=== PATIENT | female | born 1975 | race Caucasian/White ===

== ENCOUNTER → 2017-01-28 | Outpatient (CLI) | payer BC ==
[~2017-01-28] MED LIST: AMOX875T PO; DPPRI400 INJ; LEVO-366 PO
== END | disposition home or self-care (01) ==
LOC: C.PAPS 16:54
PROVIDERS: ATTEND Obstetrics & Gynecology
DX: Z01.419 Encounter for gynecological examination (general) (routine) without abnormal findings (principal); R87.610 Atypical squamous cells of undetermined significance on cytologic smear of cervix (ASC-US); E28.2 Polycystic ovarian syndrome; R87.616 Satisfactory cervical smear but lacking transformation zone

== ENCOUNTER 2017-05-19 17:08 | Emergency (ER) | payer BC ==
[~2017-05-19 17:08] MED LIST changes: -AMOX875T PO
[2017-05-19 17:15] VITALS: TEMP 36.4; Ht 167.6 cm
[2017-05-19 18:00] LABS: URINE APPEARANCE CLEAR (CLEAR); URINE BILIRUBIN NEG (NEG); URINE COLOR YELLOW; URINE NITRITE NEG (NEG); URINE PH 5.5 (4.5-7.5); URINE SPECIFIC GRAVITY 1.012 (1.000-1.030); UROBILINOGEN NEG (NEG); ZZUR CULT IF INDIC CLEAN CATCH NO
[2017-05-19 18:02] LABS: MANUAL MICROSCOPIC REQUIRED? NO; REVIEW REQ? NO
[2017-05-19 18:19] LABS: BASO % 0.1 %; BASO ABS # 0.01 K/uL (0-0.2); COMPLETE YES; EOS % 1.4 %; HEMATOCRIT 44.2 % (37-47); IG% 0.1 %; LYMPH % 17.8 %; LYMPH ABS # 1.57 K/uL (1.2-3.4); MEAN CORPUSCULAR HEMOGLOBIN 23.8 pg (25-34); MEAN CORPUSCULAR HGB CONC 31.7 g/dl (32-36); MEAN PLATELET VOLUME 10.4 fL (7.4-10.4); MONO % 4.3 %; NEUT % 76.3 %; PLATELET COUNT 259 K/uL (130-400); RED BLOOD COUNT 5.89 M/uL (4.2-5.4); WHITE BLOOD COUNT 8.84 K/uL (4.8-10.8)
[2017-05-19 18:38] LABS: ALT/SGPT 26 U/L (12-78); AST/SGOT 15 U/L (15-37); BLOOD UREA NITROGEN 9 mg/dl (7-18); BUN/CREATININE RATIO 7.6 (10-20); CALCIUM 9.1 mg/dl (8.5-10.1); CARBON DIOXIDE 26 mmol/L (21-32); CHLORIDE 105 mmol/L (98-107); GLUCOSE 124 mg/dl (70-99); MAGNESIUM 2.3 mg/dl (1.8-2.4); POTASSIUM 3.5 mmol/L (3.5-5.1); SODIUM 139 mmol/L (136-145)
[2017-05-19 18:41] LABS: ALB/GLOB RATIO 0.9 (0.9-2); ALKALINE PHOSPHATASE 100 U/L (45-117)
--- NOTE | 2017-05-19 18:50 | DIAGNOSTIC IMAGING REPORT ---
CHEST AND ABDOMEN 2 VIEWS HISTORY: No solid bowel movement in 9 days. Abdominal distension COMPARISON: Chest 09/03/2016. FINDINGS: The lungs are clear. The cardiomediastinal silhouette is within normal limits. There is no pneumoperitoneum or pneumatosis. The bowel gas pattern is unremarkable. No evidence for bowel obstruction. No renal or ureteral calculi. No radiographic evidence for constipation. IMPRESSION: No acute cardiopulmonary process. No evidence for bowel obstruction. Electronically signed by: Maurilio Edgar M.D. 05/19/2017 6:49 PM Dictated Date/Time: 05/19/2017 6:47 PM
[2017-05-19] MEDS ORDERED: SODIUM CHLORIDE 0.9% 1000ML 1,000 ML IV STA (19:02)
[2017-05-19] MEDS ORDERED: OPTIRAY 320 IV PRN (19:15)
--- NOTE | 2017-05-19 19:38 | DIAGNOSTIC IMAGING REPORT ---
ABDOMEN AND PELVIS CT WITH IV CONTRAST CT DOSE: 2131.89 mGy.cm HISTORY: Constipation. Abd bloating, no bowel movement in 9 days. TECHNIQUE: Multiaxial CT images of the abdomen and pelvis were performed following the use of intravenous contrast. A dose lowering technique was utilized adhering to the principles of ALARA. COMPARISON STUDY: Chest and abdominal series 05/19/2017. FINDINGS: There are few scattered nodules seen within the lung bases. The largest within the left lower lobe on image 85 measures 5 mm. No pneumoperitoneum. No pneumatosis. Bilateral L5 spondylolysis. Tiny fat-containing umbilical hernia. A 5 mm hypodense lesion within the left hepatic lobe. This is too small to characterize but favors a cyst. Mild hepatic steatosis. The spleen, adrenal glands, and pancreas are unremarkable. There are a few small gallstones. Punctate stones within the lower pole of the right kidney. A 1.2 cm hypodense lesion within the left kidney. This likely represents a cyst. No ureteral stones or hydronephrosis. Normal bladder. No retroperitoneal lymphadenopathy. The uterus and ovaries are unremarkable. Normal appendix. No evidence for bowel obstruction. There appears to be minimal pericolonic fat stranding surrounding a diverticulum within the proximal to mid sigmoid colon best seen on images 71 through 73. This raises the possibility of a early acute diverticulitis. IMPRESSION: 1. There appears to be minimal pericolonic fat stranding at the proximal to mid sigmoid colon surrounding a diverticulum. Therefore, this raises the possibility of an early acute diverticulitis. 2. Right-sided nephrolithiasis. No hydronephrosis. 3. Cholelithiasis. 4. A few subcentimeter nodules at the lung bases with the largest measuring 5 mm. Please refer to the chart below for recommended follow-up. Please refer to below summary of Fleischner criteria recommendations for follow-up of incidental CT nodules (Chris Bolton, Guidelines for management of small pulmonary nodules detected on CT scans: A statement from the Fleischner Society, Radiology 237: [phone].) SOLID NODULES Solitary nodule size: <6 mm * Low risk patients: no follow-up needed * high risk patients: optional CT at 12 months Solitary nodule size: 6-8 mm * Low risk patients: follow-up at 6-12 months, then consider further follow-up at 18-24 months * high risk patients: initial follow-up CT at 6-12 months and then at 18-24 months if no change Solitary nodule size: >8 mm * either low or high risk patients - consider follow-up CT at 3 months, and/or CT-PET, and/or biopsy Multiple nodules size: <6 mm * Low risk patients: no routine follow-up * high risk patients: optional CT at 12 months Multiple nodules size: 6-8 mm * Low risk patients: follow-up at 3-6 months, then consider further follow-up at 18-24 months * high risk patients: follow-up at 3-6 months, then at 18-24 months if no change Multiple nodules size: >8 mm * Low risk patients: follow-up at 3-6 months, then consider further follow-up at 18-24 months * high risk patients: follow-up at 3-6 months, then at 18-24 months if no change Note: newly detected indeterminate nodule in persons 35 years of age or older. * Low risk patients: minimal or absent history of smoking and/or other known risk factors * high risk patients: history of smoking or of other known risk factors (e.g. first degree relative with lung cancer, or exposure to asbestos, radon, uranium) * if a nodule up to 8 mm is partly solid or is ground glass further follow-up is required after 24 months to exclude possible slow growing adenocarcinoma (RUI) SUBSOLID NODULES Solitary pure ground-glass nodule * nodule size <6 mm - no CT follow-up required * nodule size >=6 mm - follow-up CT at 6-12 months, then every 2 years until 5 years Solitary part-solid nodule * nodule size <6 mm - no CT follow-up required * nodule size >=6 mm - follow-up CT at 3-6 months. If unchanged, and solid component remains <6 mm, then annual follow-up for 5 years Multiple subsolid nodules * nodule size <6 mm - follow-up CT at 3-6 months, consider further follow-up at 2 and 4 years if stable * nodule size >=6 mm - follow-up CT at 3-6 months, subsequent management based on the most suspicious nodule(s) Electronically signed by: Maurilio Edgar M.D. 05/19/2017 7:37 PM Dictated Date/Time: 05/19/2017 7:28 PM
[2017-05-19 20:00] VITALS: BP 125/72; PULSE 82; O2SAT 95
[2017-05-19] MEDS ORDERED: AMOX875T PO (20:16)
--- NOTE | 2017-05-19 20:17 | EMERGENCY ROOM VISIT NOTE ---
History First contact with patient: 17:20 Chief Complaint: CONSTIPATION Stated Complaint: PASS OUT, BOWEL BLOCKAGE Nursing Triage Summary: pt reports she was working outside all day yesterday and became dehydrated she states she made multiple attempts to take medications with no results but diarrhea History of Present Illness The patient is a 42 year old female who presents to the Emergency Room via private vehicle accompanied by with complaints of "pass out, bowel blockage". The patient states that she became dehydrated last week, is working out in the intense heat. She states that her last normal bowel movement was last Saturday. She states that she had Epsom salts, and ducolax without relief. She also has a slight sharp sensation in the left lower quadrant. She tried an enema today, and no solid stool was obtained. She denies any chest pain, or chest troubles. She states that she just does not feel right. She denies any abdominal pain, nausea or vomiting. Review of Systems A complete 10-point Review of Systems was discussed with the patient, with pertinent positives and negatives listed in the History of Present Illness. All remaining Review of Systems questions can be considered negative unless otherwise specified. Past Medical/Surgical History Medical Problems: (1) Bronchitis (2) Pneumonia Family History FH: cancer Hypertension Social History Smoking Status: Former Smoker Marital Status: Housing Status: lives with family Current/Historical Medications Scheduled Amoxicillin & Pot Clavulanate (Augmentin 875-125 mg), 1 TAB PO BID Medroxyprogesterone Acetate (Depo-Provera), 400 MG INJ [id number] Physical Exam Vital Signs Date Time Temp Pulse Resp B/P (MAP) Pulse Ox O2 Delivery O2 Flow Rate FiO2 05/19/17 20:00 82 18 125/72 95 Room Air 05/19/17 19:06 95 18 121/66 95 Room Air 05/19/17 17:15 36.4 84 20 137/82 100 Room Air Physical Exam VITAL SIGNS - Vital signs and nursing notes were reviewed. Afebrile, stable. GENERAL -42-year-old female appearing her stated age who is in no acute distress. Communicates well with provider and answers questions appropriately. SKIN - Without rashes. No petechial rashes. HEAD - NC/AT. LUNGS - Chest wall symmetric without accessory muscle use, intercostals retractions, or central cyanosis. Normal vesicular breath sounds CTA B/L. No wheezes, rales, or rhonchi appreciated. CARDIAC - RRR with S1/S2. No murmur, rubs, or gallops appreciated. ABDOMEN - Abdominal contour without pulsations or visible masses. BS normoactive all four quadrants. There is generalized abdominal tenderness, but no palpable masses, hepatosplenomegaly, or ascites noted. NEUROLOGIC - Cranial nerves II through XII grossly intact. PSYCH - A&O. Pt is very pleasant and interacts well with examiner. Medical Decision & Procedures ER Provider Diagnostic Interpretation: CHEST AND ABDOMEN 2 VIEWS HISTORY: No solid bowel movement in 9 days. Abdominal distension COMPARISON: Chest 09/03/2016. FINDINGS: The lungs are clear. The cardiomediastinal silhouette is within normal limits. There is no pneumoperitoneum or pneumatosis. The bowel gas pattern is unremarkable. No evidence for bowel obstruction. No renal or ureteral calculi. No radiographic evidence for constipation. IMPRESSION: No acute cardiopulmonary process. No evidence for bowel obstruction. Electronically signed by: Maurilio Edgar M.D. 05/19/2017 6:49 PM Dictated Date/Time: 05/19/2017 6:47 PM ABDOMEN AND PELVIS CT WITH IV CONTRAST CT DOSE: 2131.89 mGy.cm HISTORY: Constipation. Abd bloating, no bowel movement in 9 days. TECHNIQUE: Multiaxial CT images of the abdomen and pelvis were performed following the use of intravenous contrast. A dose lowering technique was utilized adhering to the principles of ALARA. COMPARISON STUDY: Chest and abdominal series 05/19/2017. FINDINGS: There are few scattered nodules seen within the lung bases. The largest within the left lower lobe on image 85 measures 5 mm. No pneumoperitoneum. No pneumatosis. Bilateral L5 spondylolysis. Tiny fat-containing umbilical hernia. A 5 mm hypodense lesion within the left hepatic lobe. This is too small to characterize but favors a cyst. Mild hepatic steatosis. The spleen, adrenal glands, and pancreas are unremarkable. There are a few small gallstones. Punctate stones within the lower pole of the right kidney. A 1.2 cm hypodense lesion within the left kidney. This likely represents a cyst. No ureteral stones or hydronephrosis. Normal bladder. No retroperitoneal lymphadenopathy. The uterus and ovaries are unremarkable. Normal appendix. No evidence for bowel obstruction. There appears to be minimal pericolonic fat stranding surrounding a diverticulum within the proximal to mid sigmoid colon best seen on images 71 through 73. This raises the possibility of a early acute diverticulitis. IMPRESSION: 1. There appears to be minimal pericolonic fat stranding at the proximal to mid sigmoid colon surrounding a diverticulum. Therefore, this raises the possibility of an early acute diverticulitis. 2. Right-sided nephrolithiasis. No hydronephrosis. 3. Cholelithiasis. 4. A few subcentimeter nodules at the lung bases with the largest measuring 5 mm. Please refer to the chart below for recommended follow-up. Please refer to below summary of Fleischner criteria recommendations for follow-up of incidental CT nodules (Chris Bolton, Guidelines for management of small pulmonary nodules detected on CT scans: A statement from the Fleischner Society, Radiology 237: [phone].) SOLID NODULES Solitary nodule size: <6 mm * Low risk patients: no follow-up needed * high risk patients: optional CT at 12 months Solitary nodule size: 6-8 mm * Low risk patients: follow-up at 6-12 months, then consider further follow-up at 18-24 months * high risk patients: initial follow-up CT at 6-12 months and then at 18-24 months if no change Solitary nodule size: >8 mm * either low or high risk patients - consider follow-up CT at 3 months, and/or CT-PET, and/or biopsy Multiple nodules size: <6 mm * Low risk patients: no routine follow-up * high risk patients: optional CT at 12 months Multiple nodules size: 6-8 mm * Low risk patients: follow-up at 3-6 months, then consider further follow-up at 18-24 months * high risk patients: follow-up at 3-6 months, then at 18-24 months if no change Multiple nodules size: >8 mm * Low risk patients: follow-up at 3-6 months, then consider further follow-up at 18-24 months * high risk patients: follow-up at 3-6 months, then at 18-24 months if no change Note: newly detected indeterminate nodule in persons 35 years of age or older. * Low risk patients: minimal or absent history of smoking and/or other known risk factors * high risk patients: history of smoking or of other known risk factors (e.g. first degree relative with lung cancer, or exposure to asbestos, radon, uranium) * if a nodule up to 8 mm is partly solid or is ground glass further follow-up is required after 24 months to exclude possible slow growing adenocarcinoma (RUI) SUBSOLID NODULES Solitary pure ground-glass nodule * nodule size <6 mm - no CT follow-up required * nodule size >=6 mm - follow-up CT at 6-12 months, then every 2 years until 5 years Solitary part-solid nodule * nodule size <6 mm - no CT follow-up required * nodule size >=6 mm - follow-up CT at 3-6 months. If unchanged, and solid component remains <6 mm, then annual follow-up for 5 years Multiple subsolid nodules * nodule size <6 mm - follow-up CT at 3-6 months, consider further follow-up at 2 and 4 years if stable * nodule size >=6 mm - follow-up CT at 3-6 months, subsequent management based on the most suspicious nodule(s) Electronically signed by: Maurilio Edgar M.D. 05/19/2017 7:37 PM Dictated Date/Time: 05/19/2017 7:28 PM Laboratory Results 05/19/17 18:00 Red Blood Count 5.89, Mean Corpuscular Volume 75.0, Mean Corpuscular Hemoglobin 23.8, Mean Corpuscular Hemoglobin Concent 31.7, Mean Platelet Volume 10.4, Neutrophils (%) (Auto) 76.3, Lymphocytes (%) (Auto) 17.8, Monocytes (%) (Auto) 4.3, Eosinophils (%) (Auto) 1.4, Basophils (%) (Auto) 0.1, Neutrophils # (Auto) 6.75, Lymphocytes # (Auto) 1.57, Monocytes # (Auto) 0.38, Eosinophils # (Auto) 0.12, Basophils # (Auto) 0.01 05/19/17 18:00 Test 05/19/17 00:00 05/19/17 18:00 Urine Color YELLOW Urine Appearance CLEAR (CLEAR) Urine pH 5.5 (4.5-7.5) Urine Specific Peck 1.012 (1.000-1.030) Urine Protein NEG (NEG) Urine Glucose (UA) NEG (NEG) Urine Ketones NEG (NEG) Urine Occult Blood NEG (NEG) Urine Nitrite NEG (NEG) Urine Bilirubin NEG (NEG) Urine Urobilinogen NEG (NEG) Urine Leukocyte Esterase NEG (NEG) Urine Test NEG (NEG) White Blood Count 8.84 K/uL (4.8-10.8) Red Blood Count 5.89 M/uL (4.2-5.4) Hemoglobin 14.0 g/dL (12.0-16.0) Hematocrit 44.2 % (37-47) Mean Corpuscular Volume 75.0 fL (80-100) Mean Corpuscular Hemoglobin 23.8 pg (25-34) Mean Corpuscular Hemoglobin Concent 31.7 g/dl (32-36) Platelet Count 259 K/uL (130-400) Mean Platelet Volume 10.4 fL (7.4-10.4) Neutrophils (%) (Auto) 76.3 % Lymphocytes (%) (Auto) 17.8 % Monocytes (%) (Auto) 4.3 % Eosinophils (%) (Auto) 1.4 % Basophils (%) (Auto) 0.1 % Neutrophils # (Auto) 6.75 K/uL (1.4-6.5) Lymphocytes # (Auto) 1.57 K/uL (1.2-3.4) Monocytes # (Auto) 0.38 K/uL (0.11-0.59) Eosinophils # (Auto) 0.12 K/uL (0-0.5) Basophils # (Auto) 0.01 K/uL (0-0.2) RDW Standard Deviation 41.0 fL (36.4-46.3) RDW Coefficient of Variation 14.8 % (11.5-14.5) Immature Granulocyte % (Auto) 0.1 % Immature Granulocyte # (Auto) 0.01 K/uL (0.00-0.02) Anion Gap 8.0 mmol/L (3-11) Estimated GFR () 65.0 Estimated GFR (Non- 56.1 BUN/Creatinine Ratio 7.6 (10-20) Calcium Level 9.1 mg/dl (8.5-10.1) Magnesium Level 2.3 mg/dl (1.8-2.4) Total Bilirubin 0.4 mg/dl (0.2-1) Aspartate Amino Transf (AST/SGOT) 15 U/L (15-37) Alanine Aminotransferase (ALT/SGPT) 26 U/L (12-78) Alkaline Phosphatase 100 U/L (45-117) Total Protein 8.0 gm/dl (6.4-8.2) Albumin 3.7 gm/dl (3.4-5.0) Globulin 4.3 gm/dl (2.5-4.0) Albumin/Globulin Ratio 0.9 (0.9-2) Medications Administered Medications (Trade) Dose Ordered Sig/Gurdeep Route Start Time Stop Time Status Last Admin Dose Admin Sodium Chloride 1,000 ml @ 999 mls/hr Q1H1M STAT IV 05/19/17 19:02 05/19/17 20:02 DC 05/19/17 19:25 999 MLS/HR Amoxicillin/ Clavulanate Potassium (Augmentin 875MG Home Pack) 1 homepack UD STAT PO 05/19/17 20:18 05/19/17 20:19 DC 05/19/17 20:18 1 HOMEPACK Medical Decision Patient was seen and evaluated as above. After obtaining a thorough history and physical examination, IV access is initiated, and the above workup was performed. Patient presented to us today with abdominal distention, and the sensation as if she is going to pass out. She was hydrated with a liter of normal saline, was reevaluated and was feeling much better. She states that when she was laying her abdomen seemed to have shifted and now she feels much better. CBC reveals no leukocytosis. Her blood cell count is slightly high. No emergent abnormality noted on the CMP. Creatinine at 1.2. She is to follow- up with her family doctor regarding this. Urine is unremarkable. Urine test negative. Baseline chest x-ray with abdominal series was obtained, and negative for acute process. No evidence of fecal impaction. I decided to obtain a CT scan of the abdomen after discussing benefits versus risk with the patient. This revealed acute diverticulitis. She'll be treated in the outpatient setting, as she appears stable to do so with Augmentin. She feels much better. On reexamination she examines well. She is to follow-up with her family doctor regarding her stay here today. She was given the first doses of amoxicillin clavulanic acid here with the remainder sent to the pharmacy. She was educated upon worrisome symptoms which to return, had questions answered prior to discharge, and was discharged home in good condition. In evaluation treatment this patient the following differential diagnoses were entertained: Acute diverticulitis, fecal impaction, bowel obstruction, among others. Impression Primary Impression: Acute diverticulitis Departure Information Dispostion Home / Self-Care Condition GOOD Prescriptions Amoxicillin & Pot Clavulanate (Augmentin 875-125 mg) 1 Tab Tab 1 TAB PO BID for 9 Days, #18 TAB Prov: Patrick Montano PA-C 05/19/17 Referrals Domo Amin DO (PCP) Patient Instructions Diverticulitis Dc, [facility] Additional Instructions You have been treated in the Emergency Department your Abdominal Pain. Laboratory results and imaging studies have ruled out any emergent causes for your abdominal pain which would warrant admission or surgery. You do have what appears to be acute diverticulitis. Please refer to the attached handout. This is regarding a diverticulitis. You have prescribed Augmentin. This is one tablet every 12 hours for 10 days. You given the first dose here, with the remainder sent to the pharmacy. Drink plenty of water and stay well hydrated. As with any trip to the Emergency Department, you should follow-up with your Primary Care Provider from today's visit. Please follow-up regarding the CT scan findings and blood work as we discussed. CT scan results listed below. Return to the emergency department if your symptoms persist despite treatment plan outlined above or if the following symptoms occur: increased fevers, chills , worsening nausea/vomiting, blood in your stool or urine. Please return the emergency department with any new/concerning symptoms. ABDOMEN AND PELVIS CT WITH IV CONTRAST CT DOSE: 2131.89 mGy.cm HISTORY: Constipation. Abd bloating, no bowel movement in 9 days. TECHNIQUE: Multiaxial CT images of the abdomen and pelvis were performed following the use of intravenous contrast. A dose lowering technique was utilized adhering to the principles of ALARA. COMPARISON STUDY: Chest and abdominal series 05/19/2017. FINDINGS: There are few scattered nodules seen within the lung bases. The largest within the left lower lobe on image 85 measures 5 mm. No pneumoperitoneum. No pneumatosis. Bilateral L5 spondylolysis. Tiny fat-containing umbilical hernia. A 5 mm hypodense lesion within the left hepatic lobe. This is too small to characterize but favors a cyst. Mild hepatic steatosis. The spleen, adrenal glands, and pancreas are unremarkable. There are a few small gallstones. Punctate stones within the lower pole of the right kidney. A 1.2 cm hypodense lesion within the left kidney. This likely represents a cyst. No ureteral stones or hydronephrosis. Normal bladder. No retroperitoneal lymphadenopathy. The uterus and ovaries are unremarkable. Normal appendix. No evidence for bowel obstruction. There appears to be minimal pericolonic fat stranding surrounding a diverticulum within the proximal to mid sigmoid colon best seen on images 71 through 73. This raises the possibility of a early acute diverticulitis. IMPRESSION: 1. There appears to be minimal pericolonic fat stranding at the proximal to mid sigmoid colon surrounding a diverticulum. Therefore, this raises the possibility of an early acute diverticulitis. 2. Right-sided nephrolithiasis. No hydronephrosis. 3. Cholelithiasis. 4. A few subcentimeter nodules at the lung bases with the largest measuring 5 mm. Please refer to the chart below for recommended follow-up. Please refer to below summary of Fleischner criteria recommendations for follow-up of incidental CT nodules (Chris Bolton, Guidelines for management of small pulmonary nodules detected on CT scans: A statement from the Fleischner Society, Radiology 237: [phone].) SOLID NODULES Solitary nodule size: <6 mm * Low risk patients: no follow-up needed * high risk patients: optional CT at 12 months Solitary nodule size: 6-8 mm * Low risk patients: follow-up at 6-12 months, then consider further follow-up at 18-24 months * high risk patients: initial follow-up CT at 6-12 months and then at 18-24 months if no change Solitary nodule size: >8 mm * either low or high risk patients - consider follow-up CT at 3 months, and/or CT-PET, and/or biopsy Multiple nodules size: <6 mm * Low risk patients: no routine follow-up * high risk patients: optional CT at 12 months Multiple nodules size: 6-8 mm * Low risk patients: follow-up at 3-6 months, then consider further follow-up at 18-24 months * high risk patients: follow-up at 3-6 months, then at 18-24 months if no change Multiple nodules size: >8 mm * Low risk patients: follow-up at 3-6 months, then consider further follow-up at 18-24 months * high risk patients: follow-up at 3-6 months, then at 18-24 months if no change Note: newly detected indeterminate nodule in persons 35 years of age or older. * Low risk patients: minimal or absent history of smoking and/or other known risk factors * high risk patients: history of smoking or of other known risk factors (e.g. first degree relative with lung cancer, or exposure to asbestos, radon, uranium) * if a nodule up to 8 mm is partly solid or is ground glass further follow-up is required after 24 months to exclude possible slow growing adenocarcinoma (RUI) SUBSOLID NODULES Solitary pure ground-glass nodule * nodule size <6 mm - no CT follow-up required * nodule size >=6 mm - follow-up CT at 6-12 months, then every 2 years until 5 years Solitary part-solid nodule * nodule size <6 mm - no CT follow-up required * nodule size >=6 mm - follow-up CT at 3-6 months. If unchanged, and solid component remains <6 mm, then annual follow-up for 5 years Multiple subsolid nodules * nodule size <6 mm - follow-up CT at 3-6 months, consider further follow-up at 2 and 4 years if stable * nodule size >=6 mm - follow-up CT at 3-6 months, subsequent management based on the most suspicious nodule(s)
[2017-05-19] MEDS ORDERED: AMOXICIL/CLAVU 875MG HOME PACK PO STA (20:18)
== END 2017-05-19 20:42 | disposition home or self-care (01) ==
LOC: C.EDB 17:09 → C.EDC 20:42
DX: K57.92 Diverticulitis of intestine, part unspecified, without perforation or abscess without bleeding (principal); Z87.01 Personal history of pneumonia (recurrent); Z87.891 Personal history of nicotine dependence

== ENCOUNTER → 2018-02-06 | Outpatient (CLI) | payer OTHER ==
[~2018-02-06] MED LIST changes: -LEVO-366 PO
== END | disposition home or self-care (01) ==
LOC: C.PAPS 14:08
PROVIDERS: ATTEND Obstetrics & Gynecology
DX: Z01.419 Encounter for gynecological examination (general) (routine) without abnormal findings (principal)

== ENCOUNTER 2021-01-12 02:52 | Inpatient (IN) ==
[2021-01-12] MEDS ORDERED: ACETAMINOPHEN 1,000 MG/100 ML VIAL IV STA (03:05)
[2021-01-12] MEDS ORDERED: ONDANSETRON INJ 2 MG/ML 2 ML VIAL IV STA (03:05)
[2021-01-12] MEDS ORDERED: SODIUM CHLORIDE 0.9% 1000ML 1,000 ML IV ONE ×2 (03:05→04:03)
--- NOTE | 2021-01-12 03:07 | Emergency Department Note ---
Impression & Plan Pneumonia due to 2019 novel coronavirus, Acute hypotension, Acute dehydration ED Provider Note Name: SILVIO HAYS Age: 45 Sex: F Arrives Via: Ambulance Informant: Patient ED Provider: Brent Clinton MD Chief Complaint: Weakness Impression: Pneumonia due to 2019 Novel Coronavirus Acute Hypotension Acute Dehydration Medical Decision Makin yr old female with diagnoses of Covid 19 at this facility 1 week ago. Initially doing better but rapidly deteriorating over the last few hours. Arrives for weakness, fatigue, mild shortness of breath and now fevers to 103. Exam she is weak, dehydrated, hypotensive, and hypoxic. O2 sats up with 2 L NC. Given 2L NSS bolus with improvement in BP. HR came down with fluids and IV tylenol and patient feeling improved. Labs with mild peña, elevated dimer, and mild procal bump. With findings and prolonged illness patient treated as secondary bacterial pna from covid and thus Zosyn started. After discussion with hospitalist decision to get CT PE due to significant dimer elevation, hypoxia/tachy on arrival. As sats much improved with NC O2 will hold on emergent anticoagulation. She is much better with fluids and is breathing comfortably. Hospitalist in to evaluate further for management. I suspect Hypotension was secondary to significant volume issues along with ongoing infection. With normal lactate, resolution of hypotension with 30ml/kg and patient feeling improved no indication for pressors at this time. Given the patients BMI >30, IBW was used to calculate the 30ml/kg fluid bolus. Prior Medical Record and Triage/Nursing Notes reviewed by Me Additional history obtained from chart Differentials:Reactive airway disease, pneumonia, pneumothorax, COPD, CHF, infections, cardiac ischemia, pulmonary embolism, musculoskeletal, gastrointestinal, as well as other pathologies. amongst other pathologies. Vital Signs: reviewed and remarkable for hypoxia, tachy, hypotensive, febrile Interventions: saline lock, IV fluids, zosyn 4.5gm IV, tylenol IV Labs:Reviewed and remarkable for elevated dimer, cr bump, procal mild elevation Imaging:X ray results are stated below per my interpretation: Chest: 1 view: Bilateral congestion consistent with viral process. Questionable infiltrate left cardiac. EKG:Per My Interpretation: Indication SHOB: ST 109 bpm, qtc 441, mildly enlarged P waves. No Ectopy. No Ischemia. Compared to EKG 01/04/21, no signifi cant changes with previous V1 T wave inversions consistent with lead location. Cardiac/Tele Monitoring: Cardiac Monitoring: An Order was placed for continuous cardiac monitoring. The monitor shows a rate of 110 with a sinus tach rhythm. Consults:[place] Hospitalist Plan: Disposition:Hospitalization. Condition: Good History of Present Illness:45 yr old female arrives for evaluation of g eneralized weakness. Patient has been feeling ill for the last 2 weeks. 1 week ago she came to ED due to worsening symptoms and was diagnosed with COVID-19. She was started on steroids and notes she had been feeling much better the last 3 days. This afternoon fevers returned. Now having full body aches, tremors and shortness of breath along with nausea. Fevers 103 at home. Motrin with minimal relief. States she is too weak to walk or even worm picker things from the floor. Notes some vague diffuse chest pain. Does feel her breathing is better than last week without any further coughing but does feel short of breath. No syncope, rashes, abdominal pain, urinary/bowel changes, leg swelling, calf pain, headache, neck pain, nor other symptoms. No recent abx. ROS: See above HPI for pertinent positives & negatives. A total of 10 systems reviewed and were otherwise negative. Past Medical History:None Past Surgical History:None Family History:Healthy Social History:See Below Home Medications:See Below Allergies:NKDA Vitals:Blood Pressure: 90/50, Pulse 112, RR 20, T 38.4C, O2 88% on RA Physical Exam: GENERAL: Patient is unwell/tired appearing and in moderate distress. Dehydrated appearing EYES: No scleral icterus, unremarkable pupils. ENT: Mucous membranes dry, no nasal congestion. NECK: No masses appreciated, nomeningismus, trachea is midline. RESPIRATORY: Mild tachypnea. Some mild crackles bases and equal bilaterally. No wheeze, no rhonchi. CARDIOVASCULAR: Tachy.No murmurs, rubs, gallops appreciated. GASTROINTESTINAL: Abdomen soft, non-tender, no peritonitis.Bowel sounds positive.No masses appreciated. BACK: No midline tenderness, no CVA tenderness EXTREMITIES: Normal motion all extremities, no cyanosis, no edema. NEUROLOGIC: Alert and oriented, no acute motor or sensory deficits, no focal weakness, cranial nerves grossly intact. SKIN: No rash, no jaundice, no diaphoresis. PSYCH: Appropriate GCS: 15 ED Course: Times/Reassessments: multiple rechecks, improvement with NC O2 and fluids and tylenol Critical Care: I have personally spent 30 minutes of critical care time in the direct management of this patient. Acute hypotension in setting of covid/dehydration. This was a life/limb threatening event. This 30 minutes is in excess of all separately billable procedures. 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: No Beliefs That Will Affect Care: None marital status: Current Living Situation: Spouse and Family Feels Safe at Home: Yes Assistive Devices: Oxygen - Continuous Allergies Allergies Allergy/AdvReac Type Severity Reaction Status Date / Time No Known Allergies Allergy Verified 01/12/21 03:46 Home Meds Home Medications Medication Instructions Recorded Confirmed Liquid Iv 1 can PO DIRECTED 01/12/21 01/12/21 ascorbic [id number] 1 ea PO BID 01/12/21 01/12/21 [Emergen-C] Previous Rx's Medication Instructions Recorded medroxyprogesterone 150 mg/mL 150 mg IM Q3M #1 ml 02/29/20 intramuscular syringe Results & Data (ED) Vital Signs Vital Signs - 24 hr 01/12/21 03:35 01/12/21 03:48 01/12/21 04:00 Temperature 37.8 C H Temperature Source Oral Pulse Rate 125 H 91 H Respiratory Rate 22 24 Respiratory Effort / Characteristics Non-Labored Spontaneous Respiratory Depth Normal Respiratory Pattern Regular Blood Pressure 99/76 L 98/55 L Blood Pressure Mean 83 69 Blood Pressure Position Sitting Pulse Oximetry 95 88 L 96 Oxygen Delivery Method Room Air Room Air Nasal Cannula Nasal Cannula Oxygen Flow Rate 0 2 Sepsis Recent Fever Within 48 Hours Yes Sepsis New/Unexplained Change in Mental Status N/A Sepsis Action Taken by Nursing No Action Required Oxygen Flow Rate - Titration 2 Pulse Oximetry Post Tiitration 96 01/12/21 04:30 01/12/21 04:32 Temperature 37.6 C H Temperature Source Oral Pulse Rate 93 H Respiratory Rate 21 Respiratory Effort / Characteristics Respiratory Depth Respiratory Pattern Blood Pressure 104/42 L Blood Pressure Mean 62 Blood Pressure Position Pulse Oximetry 97 Oxygen Delivery Method Nasal Cannula Oxygen Flow Rate 2 Sepsis Recent Fever Within 48 Hours Sepsis New/Unexplained Change in Mental Status Sepsis Action Taken by Nursing Oxygen Flow Rate - Titration Pulse Oximetry Post Tiitration Laboratory Data Result diagrams: 01/12/21 03:35 01/12/21 03:35 Lab Results 01/12/21 01/12/21 01/12/21 Range/Units 03:35 03:35 03:35 WBC 10.50 (4.8-10.8) K/uL RBC 5.96 H (4.2-5.4) M/uL Hgb 15.1 (12.0-16.0) g/dL Hct 45.9 (37-47) % MCV 77.0 L (80-100) fL MCH 25.3 (25-34) pg MCHC 32.9 (32-36) g/dL RDW Std Deviation 42.0 (36.4-46.3) fL RDW Coeff of Cecilio 15.5 H (11.5-14.5) % Plt Count 284 (130-400) K/uL MPV 10.3 (7.4-10.4) fL Immature Gran % (Auto) 2.6 % Neut % (Auto) 89.6 % Lymph % (Auto) 4.6 % [place] % (Auto) 2.8 % Eos % (Auto) 0.2 % Baso % (Auto) 0.2 % Neut # (Auto) 9.42 H (1.4-6.5) K/uL Lymph # (Auto) 0.48 L (1.2-3.4) K/uL [place] # (Auto) 0.29 (0.11-0.59) K/uL Eos # (Auto) 0.02 (0-0.5) K/uL Baso # (Auto) 0.02 (0-0.2) K/uL Immature Gran # (Auto) 0.27 H (0.00-0.02) K/uL Absolute Nucleated RBC 0.02 H (0-0) K/uL Nucleated RBC % (auto) 0.1 % PT 11.1 (9.0-12.0) Seconds INR 1.1 (0.9-1.1) D-Dimer 2920 H* (0-500) ug/L FEU Sodium (136-145) mmol/L Potassium (3.5-5.1) mmol/L Chloride (98-107) mmol/L Carbon Dioxide (21-32) mmol/L Anion Gap (3-11) BUN (7-18) mg/dl Creatinine (0.6-1.2) mg/dl Est Cr Clr Drug Dosing ml/min Est GFR ( Amer) Est GFR (Non-Af Amer) BUN/Creatinine Ratio (10-20) Glucose (70-99) mg/dl Lactate 1.6 (0.4-2.0) mmol/L Calcium (8.5-10.1) mg/dl Phosphorus (2.5-4.9) mg/dl Magnesium (1.8-2.4) mg/dl Total Bilirubin (0.2-1) mg/dl Direct Bilirubin (0-0.2) mg/dl AST (15-37) U/L ALT (12-78) U/L Alkaline Phosphatase (45-117) U/L Total Creatine Kinase (26-192) U/L Troponin I (0-0.045) ng/ml NT-Pro-B Natriuret Pep (0-450) pg/ml Total Protein (6.4-8.2) gm/dl Albumin (3.4-5.0) gm/dl Lipase (73-393) U/L Procalcitonin (0-0.5) ng/ml 01/12/21 01/12/21 01/12/21 Range/Units 03:35 03:35 03:35 WBC (4.8-10.8) K/uL RBC (4.2-5.4) M/uL Hgb (12.0-16.0) g/dL Hct (37-47) % MCV (80-100) fL MCH (25-34) pg MCHC (32-36) g/dL RDW Std Deviation (36.4-46.3) fL RDW Coeff of Cecilio (11.5-14.5) % Plt Count (130-400) K/uL MPV (7.4-10.4) fL Immature Gran % (Auto) % Neut % (Auto) % Lymph % (Auto) % [place] % (Auto) % Eos % (Auto) % Baso % (Auto) % Neut # (Auto) (1.4-6.5) K/uL Lymph # (Auto) (1.2-3.4) K/uL [place] # (Auto) (0.11-0.59) K/uL Eos # (Auto) (0-0.5) K/uL Baso # (Auto) (0-0.2) K/uL Immature Gran # (Auto) (0.00-0.02) K/uL Absolute Nucleated RBC (0-0) K/uL Nucleated RBC % (auto) % PT (9.0-12.0) Seconds INR (0.9-1.1) D-Dimer (0-500) ug/L FEU Sodium 138 (136-145) mmol/L Potassium 4.2 (3.5-5.1) mmol/L Chloride 104 (98-107) mmol/L Carbon Dioxide 32 (21-32) mmol/L Anion Gap 2.0 L (3-11) BUN 23 H (7-18) mg/dl Creatinine 1.30 H (0.6-1.2) mg/dl Est Cr Clr Drug Dosing 92.0 ml/min Est GFR ( Amer) 57.8 Est GFR (Non-Af Amer) 49.9 BUN/Creatinine Ratio 18.0 (10-20) Glucose 115 H (70-99) mg/dl Lactate (0.4-2.0) mmol/L Calcium 8.4 L (8.5-10.1) mg/dl Phosphorus 3.2 (2.5-4.9) mg/dl Magnesium 2.1 (1.8-2.4) mg/dl Total Bilirubin 1.5 H (0.2-1) mg/dl Direct Bilirubin 0.5 H (0-0.2) mg/dl AST 12 L (15-37) U/L ALT 67 (12-78) U/L Alkaline Phosphatase 90 (45-117) U/L Total Creatine Kinase 24 L (26-192) U/L Troponin I < 0.015 (0-0.045) ng/ml NT-Pro-B Natriuret Pep 94 (0-450) pg/ml Total Protein 7.2 (6.4-8.2) gm/dl Albumin 3.0 L (3.4-5.0) gm/dl Lipase 105 (73-393) U/L Procalcitonin 1.91 H (0-0.5) ng/ml Administered Medications Enoxaparin Sodium (Enoxaparin 100 Mg/1ml Syr) 90 mg SQ BID JEMIMA Stop: 02/11/21 08:59 Last Admin: 01/12/21 19:34 Dose: 90 mg Documented by: [id number] Admin: 01/12/21 10:38 Dose: 90 mg Documented by: [id number] Ceftriaxone Sodium 2,000 mg/ (Dextrose) 70 mls @ 100 mls/hr IV Q24H [facility]; Protocol Stop: 01/19/21 09:59 Last Infusion: 01/12/21 12:36 Dose: 0 mls/hr Documented by: [id number] Admin: 01/12/21 10:38 Dose: 100 mls/hr Documented by: [id number] Discontinued Medications Dexamethasone Sodium Phosphate (DexamethasonePf 10 Mg/Ml Vial) 10 mg IV NOW ONE Stop: 01/12/21 04:04 Last Admin: 01/12/21 04:19 Dose: 10 mg Documented by: [id number] Acetaminophen (Ofirmev) 1,000 mg in 100 mls @ 400 mls/hr IV NOW STA Stop: 01/12/21 03:19 Last Infusion: 01/12/21 03:31 Dose: 0 mls/hr Documented by: [id number] Admin: 01/12/21 03:16 Dose: 400 mls/hr Documented by: [id number] Sodium Chloride (Nss 1000ml) 1,000 mls @ 999 mls/hr IV .Q1H1M ONE Stop: 01/12/21 04:05 Last Infusion: 01/12/21 04:17 Dose: 0 mls/hr Documented by: [id number] Admin: 01/12/21 03:16 Dose: 999 mls/hr Documented by: [id number] Sodium Chloride (Nss 1000ml) 1,000 mls @ 999 mls/hr IV .Q1H1M ONE Stop: 01/12/21 05:03 Last Infusion: 01/12/21 05:20 Dose: 0 mls/hr Documented by: [id number] Admin: 01/12/21 04:19 Dose: 999 mls/hr Documented by: [id number] Piperacillin Sod/Tazobactam Sod (Zosyn) 4.5 gm in 120 mls @ 240 mls/hr IV NOW ONE Stop: 01/12/21 04:51 Last Infusion: 01/12/21 05:00 Dose: 0 mls/hr Documented by: [id number] Admin: 01/12/21 04:30 Dose: 240 mls/hr Documented by: [id number] Azithromycin 500 mg/ Dextrose 255 mls @ 127.5 mls/hr IV 0800 ONE Stop: 01/12/21 09:59 Last Infusion: 01/12/21 14:55 Dose: 0 mls/hr Documented by: [id number] Infusion: 01/12/21 14:42 Dose: 0 mls/hr Documented by: [id number] Infusion: 01/12/21 14:41 Dose: 0 mls/hr Documented by: [id number] Infusion: 01/12/21 12:45 Dose: 0 mls/hr Documented by: [id number] Admin: 01/12/21 10:48 Dose: 127.5 mls/hr Documented by: [id number] Ioversol (Optiray 320 125ml) 120 ml IV ONCE ONE Stop: 01/12/21 06:52 Last Admin: 01/12/21 06:52 Dose: 120 ml Documented by: [id number] Miscellaneous Information (Piperacill/Tazobac Consult Active) 1 ea N/A UD PRN PRN Reason: Consult Stop: 02/11/21 04:21 Last Admin: 01/12/21 04:30 Dose: 1 ea Documented by: [id number] Ondansetron HCl (Ondansetron Inj 2 Mg/Ml 2 Ml Vial) 4 mg IV NOW STA Stop: 01/12/21 03:06 Last Admin: 01/12/21 03:16 Dose: 4 mg Documented by: [id number] Imaging Data Radiologist's Impression: Chest X-Ray 01/12/21 03:05 SINGLE VIEW CHEST CLINICAL HISTORY: Dyspnea. Covid. FINDINGS: An AP, portable, upright chest radiograph is compared to study dated 01/04/2021. The heart is mildly enlarged. Patchy airspace consolidation is seen at both lung bases. This has modestly cleared from 01/04/2021. No large pleural effusion or pneumothorax is seen. The bony thorax is grossly intact. IMPRESSION: Patchy airspace consolidation at both lung bases has modestly cleared as compared to 01/04/2021. This is consistent with reported history of a viral pneumonia. ACT 112: Negative or not required by law. Electronically signed by: Inocencio Perrin M.D. 01/12/2021 7:59 AM Chest CTA 01/12/21 04:28 CHEST CTA for PULMONARY ARTERIES CT DOSE: 919.90 mGy.cm HISTORY: Covid positive. Progressive shortness of breath. Fever. Assess for pulmonary embolus. TECHNIQUE: Multiaxial CT images of the chest were performed following the intravenous administration of contrast to evaluate the pulmonary arteries. Maximal intensity projection images were also obtained. A dose lowering technique was utilized adhering to the principles of ALARA. COMPARISON STUDY: None. FINDINGS: Limited views the upper abdomen demonstrate hepatic steatosis and mild splenomegaly. Cholelithiasis. The visualized adrenal glands are unremarkable. No pleural or pericardial effusions. No mediastinal or hilar lymphadenopathy. The heart is borderline enlarged. Normal caliber thoracic aorta with no evidence for dissection. No filling defects within the pulmonary arteries to suggest pulmonary embolus. No fractures within the visualized osseous structures. No pneumothorax. The central airways are patent. There are few small patchy groundglass and nodular airspace opacities seen within the lungs. This favors a resolving mild pneumonia. This is most pronounced within the right lung. Bibasilar linear densities likely represent subsegmental atelectasis. IMPRESSION: 1. No evidence for pulmonary embolus. 2. A few small patchy groundglass and nodular airspace opacities seen within the lungs, right greater than left. This favors a resolving mild viral pneumonia. 3. Hepatic steatosis. 4. Mild splenomegaly. 5. Cholelithiasis. ACT 112: Negative or not required by law. Electronically signed by: Maurilio Edgar M.D. 01/12/2021 8:12 AM Discharge Plan Visit Data Chief Complaint: Fever Stated Complaint: FEVER/CHILLS/WEAK ED Provider: Brent Clinton Discharge Problem: Pneumonia due to 2019 novel coronavirus, Acute hypotension, Acute dehydration Patient Disposition: Admitted As Inpatient Discharge Instructions Interventions: ED Discharge Assessment Last Done: 01/12/21 06:32
[2021-01-12 03:48] LABS: Basophils # (auto) 0.02 K/uL (0-0.2); Basophils % (auto) 0.2 %; Eosinophils # (auto) 0.02 K/uL (0-0.5); Eosinophils % (auto) 0.2 %; Hematocrit (blood only) 45.9 % (37-47); Hemoglobin 15.1 g/dL (12.0-16.0); Immature Granulocytes # (auto) 0.27 K/uL (0.00-0.02); Immature Granulocytes % (auto) 2.6 %; Lymphocytes # (auto) 0.48 K/uL (1.2-3.4); Lymphocytes % (auto) 4.6 %; Mean Corpuscular Hemoglobin 25.3 pg (25-34); Mean Corpuscular Hgb Conc 32.9 g/dL (32-36); Mean Platelet Volume 10.3 fL (7.4-10.4); Monocytes # (auto) 0.29 K/uL (0.11-0.59); Monocytes % (auto) 2.8 %; Neutrophils # (auto) 9.42 K/uL (1.4-6.5); Neutrophils % (auto) 89.6 %; Nucleated RBC # (auto) 0.02 K/uL (0-0); Nucleated RBC % (auto) 0.1 %; Platelet Count 284 K/uL (130-400); RDW Coefficient of Variation 15.5 % (11.5-14.5); Red Blood Count 5.96 M/uL (4.2-5.4)
[2021-01-12 04:02] LABS: INR 1.1 (0.9-1.1); Prothrombin Time 11.1 Seconds (9.0-12.0)
[2021-01-12] MEDS ORDERED: dexAMETHasone**PF** 10 MG/ML VIAL IV ONE (04:03)
[2021-01-12 04:06] LABS: D Dimer 2920 ug/L FEU (0-500)
[2021-01-12 04:07] LABS: Alanine Aminotransferase 67 U/L (12-78); Aspartate Aminotransferase 12 U/L (15-37); Bilirubin Direct 0.5 mg/dl (0-0.2); Blood Urea Nitrogen 23 mg/dl (7-18); Calcium 8.4 mg/dl (8.5-10.1); Carbon Dioxide 32 mmol/L (21-32); Chloride 104 mmol/L (98-107); Est GFR (African American) 57.8; Est GFR (Non-African American) 49.9; Glucose 115 mg/dl (70-99); Lipase 105 U/L (73-393); Magnesium 2.1 mg/dl (1.8-2.4); Potassium 4.2 mmol/L (3.5-5.1); Sodium 138 mmol/L (136-145)
[2021-01-12 04:10] LABS: Alkaline Phosphatase 90 U/L (45-117); Bilirubin,Total 1.5 mg/dl (0.2-1); Creatine Kinase 24 U/L (26-192); NT Pro B Type Natriuretic Pept 94 pg/ml (0-450); Total Protein 7.2 gm/dl (6.4-8.2); Troponin I < 0.015 ng/ml (0-0.045)
[2021-01-12] MEDS ORDERED: PIPERACILLIN/TAZOBACTAM 4.5 GM/120 ML BAG IV ONE (04:22)
[2021-01-12] MEDS ORDERED: PIPERACILL/TAZOBAC CONSULT ACTIVE PRN (04:22)
--- NOTE | 2021-01-12 05:04 | History & Physical Report ---
Date of Service January 12, 2021 Assessment & Plan (1) Pneumonia due to 2019 novel coronavirus: 45yo C female presenting with Covid-19 PNA. Patient has been ill x 17 days. Her symptoms improved, however, fever returned yesterday. No respiratory distress, tachycardic on arrival to 125bpm, saturation of 88% on room air, now 97% on 2L O2. Labs with lymphopenia. Ddimer elevated at 2920. BUN=23, and Cr=1.3, Procalcitonin = 1.91 CXR with appearance of airspace opacities bilaterally CTPA pending to rule out PE -Admit to medical floor -Maintain isolation precautions - airborne and contact -Supplemental O2 as needed -Dexamethasone 6mg IV daily -Patient is late in illness - day 17. Most likely would not benefit from treatment with Remdesivir -Tylenol PRN pain or fever -Tessalon PRN cough -ALbuterol PRN SOB -Lovenox 85mg BID for DVT ppx - morbid obesity with BMI of 59.1 -Will provide antibiotics for CAP - Azithromycin and Ceftriaxone. Patient's fever course somewhat concerning for secondary bacterial infection. She has an elevated procalcitonin of 1.91 which is nonspecific in late Covid-19 disease. -Follow cultures F/E/N -Patient received 2L NSS, monitor electrolytes, Regular diet as tolerated Ppx - Lovenox 85 BID Code- Full Dispo -Admit to medical Present on Admission?: Yes History of Present Illness Chief Complaint: Covid-19 Primary Care Provider: Farnaz Suh PA-C Geetha Bosch is a 45yo C female with no significant past medical or surgical history presenting with Covid-19 PNA. Patient began feeling ill 17 days ago. She had fever, body aches, loss of taste and smell and slight cough. Her symptoms largely improved although she remains tired. Her fever resolved x 72 hours but returned yesterday AM. She denies CP, current cough or SOB. Denies abdominal pain, nausea, vomiting. She has had intermittent diarrhea. No additional complaints at this time. ER Course: Tylenol, Dexamethasone, Zofran, NSS x 2L Allergies Allergy/AdvReac Type Severity Reaction Status Date / Time No Known Allergies Allergy Verified 01/12/21 03:46 Home Medications Medication Instructions Recorded Confirmed Type medroxyprogesterone 150 mg/mL 150 mg IM Q3M #1 ml 02/29/20 01/12/21 Rx intramuscular syringe Liquid Iv 1 can PO DIRECTED 01/12/21 01/12/21 History ascorbic [id number] 1 ea PO BID 01/12/21 01/12/21 History [Emergen-C] Past Med/Surg History Medical History Morbid obesity with BMI of 50.0-59.9, adult Surgical History No pertinent past surgical history Family History Other No pertinent family history Social History Smoking Status: Never smoker Tobacco Type: Cigarettes Preferred Language: Dutch Communication Ability: Effective marital status: Current Living Situation: Family Feels Safe at Home: Yes Review of Systems Review of Systems: All systems reviewed & are unremarkable except as noted in HPI & below Physical Exam Physical Exam: General: morbidly obese female patient resting comfortably, NAD, ill in appearance, AA&O x 4 Skin: warm, dry, intact, no rashes or lesions HEENT: NC/AT, PERRL, EOMI, anicteric sclera, conjunctiva without injection, external ear normal to inspection and nontender, nares patent, moist mucus membranes, dentition intact, no oropharyngeal lesions, neck supple, trachea midline, no LAD, no thyromegaly, no JVD Heart: +S1/S2, regular, no m/r/g Lungs: equal air entry bilaterally, no rales/rhonchi/wheezes Abd: +BS, soft, NT/ND, no masses/organomegaly/ascites Ext: warm, 2+ pulses in UE/LE bilaterally, no clubbing/cyanosis or edema Neuro: nonfocal, patient AA&O x 4, speech intact, no facial droop, moving all extremities on command with equal strength 5/5 Results & Data Results & Data ([place]) Vital Signs (Past 12 Hours) Vital Signs Temp Pulse Resp BP Pulse Ox 01/12/21 04:32 37.6 C H 01/12/21 04:30 93 H 21 104/42 L 97 01/12/21 04:00 91 H 24 98/55 L 96 01/12/21 03:48 88 L 01/12/21 03:35 37.8 C H 125 H 22 99/76 L 95 Laboratory Results Lab Results 01/12/21 01/12/21 01/12/21 Range/Units 03:35 03:35 03:35 WBC 10.50 (4.8-10.8) K/uL RBC 5.96 H (4.2-5.4) M/uL Hgb 15.1 (12.0-16.0) g/dL Hct 45.9 (37-47) % MCV 77.0 L (80-100) fL MCH 25.3 (25-34) pg MCHC 32.9 (32-36) g/dL RDW Std Deviation 42.0 (36.4-46.3) fL RDW Coeff of Cecilio 15.5 H (11.5-14.5) % Plt Count 284 (130-400) K/uL MPV 10.3 (7.4-10.4) fL Immature Gran % (Auto) 2.6 % Neut % (Auto) 89.6 % Lymph % (Auto) 4.6 % [place] % (Auto) 2.8 % Eos % (Auto) 0.2 % Baso % (Auto) 0.2 % Neut # (Auto) 9.42 H (1.4-6.5) K/uL Lymph # (Auto) 0.48 L (1.2-3.4) K/uL [place] # (Auto) 0.29 (0.11-0.59) K/uL Eos # (Auto) 0.02 (0-0.5) K/uL Baso # (Auto) 0.02 (0-0.2) K/uL Immature Gran # (Auto) 0.27 H (0.00-0.02) K/uL Absolute Nucleated RBC 0.02 H (0-0) K/uL Nucleated RBC % (auto) 0.1 % PT 11.1 (9.0-12.0) Seconds INR 1.1 (0.9-1.1) D-Dimer 2920 H* (0-500) ug/L FEU Sodium (136-145) mmol/L Potassium (3.5-5.1) mmol/L Chloride (98-107) mmol/L Carbon Dioxide (21-32) mmol/L Anion Gap (3-11) BUN (7-18) mg/dl Creatinine (0.6-1.2) mg/dl Est Cr Clr Drug Dosing ml/min Est GFR ( Amer) Est GFR (Non-Af Amer) BUN/Creatinine Ratio (10-20) Glucose (70-99) mg/dl Lactate 1.6 (0.4-2.0) mmol/L Calcium (8.5-10.1) mg/dl Magnesium (1.8-2.4) mg/dl Total Bilirubin (0.2-1) mg/dl Direct Bilirubin (0-0.2) mg/dl AST (15-37) U/L ALT (12-78) U/L Alkaline Phosphatase (45-117) U/L Total Creatine Kinase (26-192) U/L Troponin I (0-0.045) ng/ml NT-Pro-B Natriuret Pep (0-450) pg/ml Total Protein (6.4-8.2) gm/dl Albumin (3.4-5.0) gm/dl Lipase (73-393) U/L Procalcitonin (0-0.5) ng/ml 01/12/21 01/12/21 Range/Units 03:35 03:35 WBC (4.8-10.8) K/uL RBC (4.2-5.4) M/uL Hgb (12.0-16.0) g/dL Hct (37-47) % MCV (80-100) fL MCH (25-34) pg MCHC (32-36) g/dL RDW Std Deviation (36.4-46.3) fL RDW Coeff of Cecilio (11.5-14.5) % Plt Count (130-400) K/uL MPV (7.4-10.4) fL Immature Gran % (Auto) % Neut % (Auto) % Lymph % (Auto) % [place] % (Auto) % Eos % (Auto) % Baso % (Auto) % Neut # (Auto) (1.4-6.5) K/uL Lymph # (Auto) (1.2-3.4) K/uL [place] # (Auto) (0.11-0.59) K/uL Eos # (Auto) (0-0.5) K/uL Baso # (Auto) (0-0.2) K/uL Immature Gran # (Auto) (0.00-0.02) K/uL Absolute Nucleated RBC (0-0) K/uL Nucleated RBC % (auto) % PT (9.0-12.0) Seconds INR (0.9-1.1) D-Dimer (0-500) ug/L FEU Sodium 138 (136-145) mmol/L Potassium 4.2 (3.5-5.1) mmol/L Chloride 104 (98-107) mmol/L Carbon Dioxide 32 (21-32) mmol/L Anion Gap 2.0 L (3-11) BUN 23 H (7-18) mg/dl Creatinine 1.30 H (0.6-1.2) mg/dl Est Cr Clr Drug Dosing 92.0 ml/min Est GFR ( Amer) 57.8 Est GFR (Non-Af Amer) 49.9 BUN/Creatinine Ratio 18.0 (10-20) Glucose 115 H (70-99) mg/dl Lactate (0.4-2.0) mmol/L Calcium 8.4 L (8.5-10.1) mg/dl Magnesium 2.1 (1.8-2.4) mg/dl Total Bilirubin 1.5 H (0.2-1) mg/dl Direct Bilirubin 0.5 H (0-0.2) mg/dl AST 12 L (15-37) U/L ALT 67 (12-78) U/L Alkaline Phosphatase 90 (45-117) U/L Total Creatine Kinase 24 L (26-192) U/L Troponin I < 0.015 (0-0.045) ng/ml NT-Pro-B Natriuret Pep 94 (0-450) pg/ml Total Protein 7.2 (6.4-8.2) gm/dl Albumin 3.0 L (3.4-5.0) gm/dl Lipase 105 (73-393) U/L Procalcitonin 1.91 H (0-0.5) ng/ml Diagnostic Findings CXR with bilateral airspace opacities Code Status & VTE Plan VTE Prophylaxis Plan VTE Prophylaxis will be ordered: Yes PG Care Time/CCT Total # of Minutes Spent Total Time Spent with Patient: Total time spent is greater than 50% in coordination of care (as documented) at patient's floor/unit and/or counseling patient: Coding Level of Care Code 78047 Initial Inpt Care Lvl 2 Diagnoses Pneumonia due to 2019 novel coronavirus U07.1; J12.82
[2021-01-12] MEDS ORDERED: OPTIRAY 320 125ml IV ONE (06:51)
[2021-01-12] MEDS ORDERED: ALBUTEROL HFA 8 GM INHALER INH PRN (07:20)
[2021-01-12] MEDS ORDERED: ACETAMINOPHEN 325 MG TAB PO PRN (07:20)
[2021-01-12] MEDS ORDERED: AZITHROMYCIN 500 MG in DEXTROSE 5% 250 ML IV ONE (08:00)
--- NOTE | 2021-01-12 08:00 | XRay Report ---
SINGLE VIEW CHEST CLINICAL HISTORY: Dyspnea. Covid. FINDINGS: An AP, portable, upright chest radiograph is compared to study dated 01/04/2021. The heart i s mildly enlarged. Patchy airspace consolidation is seen at both lung bases. This has modestly cleare d from 01/04/2021. No large pleural effusion or pneumothorax is seen. The bony thorax is grossly intac t. IMPRESSION: Patchy airspace consolidation at both lung bases has modestly cleared as compared to 01/04. This is consistent with reported history of a viral pneumonia. ACT 112: Negative or not required by law. Electronically signed by: Inocencio Perrin M.D. 01/12/2021 7:59 AM
--- NOTE | 2021-01-12 08:14 | CT Scan Report ---
CHEST CTA for PULMONARY ARTERIES CT DOSE: 919.90 mGy.cm HISTORY: Covid positive. Progressive shortness of breath. Fever. Assess for pulmonary embolus. TECHNIQUE: Multiaxial CT images of the chest were performed following the intravenous administration of contrast to evaluate the pulmonary arteries. Maximal intensity projection images were also obtaine d. A dose lowering technique was utilized adhering to the principles of ALARA. COMPARISON STUDY: None. FINDINGS: Limited views the upper abdomen demonstrate hepatic steatosis and mild splenomegaly. Cholel ithiasis. The visualized adrenal glands are unremarkable. No pleural or pericardial effusions. No med iastinal or hilar lymphadenopathy. The heart is borderline enlarged. Normal caliber thoracic aorta wi th no evidence for dissection. No filling defects within the pulmonary arteries to suggest pulmonary embolus. No fractures within the visualized osseous structures. No pneumothorax. The central airways are patent. There are few small patchy groundglass and nodular airspace opacities seen within the shobha gs. This favors a resolving mild pneumonia. This is most pronounced within the right lung. Bibasilar linear densities likely represent subsegmental atelectasis. IMPRESSION: 1. No evidence for pulmonary embolus. 2. A few small patchy groundglass and nodular airspace opacities seen within the lungs, right greater than left. This favors a resolving mild viral pneumonia. 3. Hepatic steatosis. 4. Mild splenomegaly. 5. Cholelithiasis. ACT 112: Negative or not required by law. Electronically signed by: Maurilio Edgar M.D. 01/12/2021 8:12 AM
[2021-01-12] MEDS: cefTRIAXone SODIUM 2,000 MG in DEXTROSE 5% 50 ML IV SCH (10:38)
[2021-01-12] MEDS: ENOXAPARIN 100 MG/1ML SYR SQ SCH ×2 (10:38→19:34)
--- NOTE | 2021-01-12 10:49 | Electrocardiogram Report ---
Test Reason : Blood Pressure : / mmHG Vent. Rate : 109 BPM Atrial Rate : 109 BPM P-R Int : 128 ms QRS Dur : 070 ms QT Int : 328 ms P-R-T Axes : 038 005 008 degrees QTc Int : 441 ms Sinus tachycardia Otherwise normal ECG When compared with ECG of 04-JAN-2021 11:30, Nonspecific T wave abnormality no longer evident in Anterior leads Confirmed by Jay Fernandez ([id number]) on 01/12/2021 10:49:15 AM Referred By: REFERRED SELF Confirmed By:Yon Fernandez
[2021-01-12 20:21] LABS: Pregnancy Test, Urine Negative (Negative)
[2021-01-12 20:24] LABS: Appearance Urine Clear (Clear); Bacteria Urine Automated Negative (Negative); Bilirubin Urine Negative (Negative); Blood Urine 2+ (Negative); Color Urine Yellow; Epithelial Cell Urine Auto >30 /lpf (0-5); Glucose Urine UA Negative (Negative); Ketones Urine Negative (Negative); Leukocyte Esterase Urine 1+ (Negative); Nitrite Urine Negative (Negative); Protein Urine Negative (Negative); Specific Gravity Urine 1.028 (1.000-1.030); Urobilinogen Urine Negative (Negative); WBC Urine Automated >30 /hpf (0-5); pH Urine 6.5 (4.5-7.5)
[2021-01-13 07:36] LABS: Basophils # (auto) 0.02 K/uL (0-0.2); Basophils % (auto) 0.2 %; Eosinophils # (auto) 0.04 K/uL (0-0.5); Eosinophils % (auto) 0.5 %; Hematocrit (blood only) 40.6 % (37-47); Hemoglobin 12.8 g/dL (12.0-16.0); Immature Granulocytes # (auto) 0.17 K/uL (0.00-0.02); Immature Granulocytes % (auto) 2.1 %; Lymphocytes # (auto) 1.52 K/uL (1.2-3.4); Lymphocytes % (auto) 18.9 %; Mean Corpuscular Hgb Conc 31.5 g/dL (32-36); Mean Corpuscular Volume 79.1 fL (80-100); Mean Platelet Volume 10.3 fL (7.4-10.4); Monocytes # (auto) 0.81 K/uL (0.11-0.59); Monocytes % (auto) 10.1 %; Neutrophils # (auto) 5.48 K/uL (1.4-6.5); Neutrophils % (auto) 68.2 %; Platelet Count 204 K/uL (130-400); RDW Coefficient of Variation 15.5 % (11.5-14.5); RDW Standard Deviation 43.3 fL (36.4-46.3); Red Blood Count 5.13 M/uL (4.2-5.4); White Blood Count 8.04 K/uL (4.8-10.8)
[2021-01-13 08:16] LABS: Alanine Aminotransferase 43 U/L (12-78); Albumin Level 2.5 gm/dl (3.4-5.0); Aspartate Aminotransferase 8 U/L (15-37); BUN Creatinine Ratio 20.8 (10-20); Blood Urea Nitrogen 20 mg/dl (7-18); Calcium 8.9 mg/dl (8.5-10.1); Carbon Dioxide 29 mmol/L (21-32); Chloride 107 mmol/L (98-107); Creatinine Clr Calc Pharmacy 125.8 ml/min; Est GFR (African American) 85.5; Est GFR (Non-African American) 73.8; Glucose 101 mg/dl (70-99); Potassium 4.5 mmol/L (3.5-5.1); Sodium 139 mmol/L (136-145)
[2021-01-13 08:18] LABS: Alkaline Phosphatase 72 U/L (45-117); Bilirubin,Total 0.5 mg/dl (0.2-1); Total Protein 6.3 gm/dl (6.4-8.2)
[2021-01-13] MEDS: ENOXAPARIN 100 MG/1ML SYR SQ SCH (08:48)
[2021-01-13] MEDS ORDERED: dexAMETHasone 6 MG in SYRINGE 0 ML IV SCH (09:00)
[2021-01-13] MEDS ORDERED: AZITHROMYCIN 250 MG in DEXTROSE 5% 250 ML IV SCH (09:00)
[2021-01-13 09:16] LABS: Bilirubin Direct < 0.1 mg/dl (0-0.2)
[2021-01-13] MEDS: cefTRIAXone SODIUM 2,000 MG in DEXTROSE 5% 50 ML IV SCH (11:22)
--- NOTE | 2021-01-13 20:48 | Discharge Summary ---
Date of Service January 13, 2021 Admission HPI Per Admitting Provider Geetha Bosch is a 45yo C female with no significant past medical or surgical history presenting with Covid-19 PNA. Patient began feeling ill 17 days ago. She had fever, body aches, loss of taste and smell and slight cough. Her symptoms largely improved although she remains tired. Her fever resolved x 72 hours but returned yesterday AM. She denies CP, current cough or SOB. Denies abdominal pain, nausea, vomiting. She has had intermittent diarrhea. No additional complaints at this time. ER Course: Tylenol, Dexamethasone, Zofran, NSS x 2L Principal Diagnosis Covid-19 pneumonia Possible secondary bacterial pneumonia Discharge Exam Constitutional WD/WN, vitals as above Eyes EOM intact bilaterally; no conjunctival abnormality ENMT external ear and nose normal, oropharynx normal Neck trachea midline, no thyromegaly normal visual inspection Respiratory normal respiratory effort, lungs clear to auscultation + cough; no respiratory distress Cardiovascular RRR, no murmur, no edema Gastrointestinal (Abdomen) Inspection/Auscultation: abdomen normal to inspection; abdomen not distended Musculoskeletal no cyanosis or clubbing, extremities motor strength 5/5 Skin no rashes, warm and dry Neurologic moves all extremities and awake Psychiatric Orientation: alert, oriented to person and cooperative Discharge Data Allergies Allergy/AdvReac Type Severity Reaction Status Date / Time No Known Allergies Allergy Verified 01/12/21 03:46 Ordered Studies 01/12/21 04:28 CT angio chest PE protocol Stat Hospital Course (1) Pneumonia due to 2019 novel coronavirus: 45yo C female presenting with Covid-19 PNA. Patient has been ill x 17 days. Her symptoms improved, however, fever returned yesterday. - CTA chest ruled out PE. - Started on dexamethasone & CAP abx. - [place] better within 48 hours. Given the afebrile period (72+ hours), followed by return of fever, considered secondary bacterial infection, though CTA chest did not show a pronounced lobar pneumonia. - Discharged on 3 more days of dexamethasone (essentially completing a 10-day treatment course as done in Recovery trial). - Discharged with 5 more days of oral ABX (levofloxacin) to cover for any secondary bacterial infection. - Discharged with advice to take ASA 81 mg PO daily x 14 days (some evidence that ASA reduced progression to severe Covid in recent [place] [employer]emat[employer] article). - Discharged on room air. Total Time Total Time Spent Total Time Spent (In Minutes): 35 Discharge Plan Discharge Items Patient Disposition: Home - Self-Care Reason For Visit: COVID-19 Discharge Diagnosis: Covid-19 pneumonia Activity: Resume your previous activity Non-emergency contact: Primary Care Provider Call non-emergency contact if: your symptoms worsen and your temperature is above 101 Follow-up/Referrals: Farnaz Suh PA-C [Primary Care Provider] - 01/30/21 10:10 am Diet: Regular Addtl Attending Provider Instructions: Ms. Bosch, You were admitted with Covid-19 pneumonia along with a possible superimposed bacterial pneumonia. We started you on steroids and antibiotics, and you are feeling better already. Please take the antibiotic and steroid once per day. Your next dose for BOTH is tomorrow morning. You will take the steroid for 3 days, and the antibiotic (levofloxacin) for 5 more day. Please also take a baby aspirin (81 mg) once daily for 2 weeks. This has some evidence showing it helps prevent any worsening of Covid. Please call and speak with your PCP sometime next week to be sure you are doing well. If you start to have fevers again, please call your PCP or come back to the ER. Pending Studies at Discharge: No Stand-Alone Forms: My [facility] [employer], Smoking Cessation Medications and DC Order Prescriptions: New levofloxacin 750 mg tablet 750 mg PO DAILY 5 Days Qty: 5 RF: 0 dexamethasone 6 mg tablet 6 mg PO DAILY Qty: 3 RF: 0 Continued medroxyprogesterone 150 mg/mL syringe 150 mg IM Q3M Qty: 1 RF: 3 Emergen-C 1,000 mg Powder Effervescent In Packet 1 ea PO BID RF: 0 Liquid Iv 1 can PO DIRECTED RF: 0 Discharge Orders: Discharge Order (Routine); Ordered 01/13/21 Ordered By: Romain Gonzalez/Other Patient Handouts: COVID-19 Home Care, Caring for Someone Who Has COVID-19 Admission Data Admit Date/Time: 01/12/21 04:48 Attending Provider: Romain Corona Admit Provider: Alicia Penaloza Primary Care Provider: Farnaz Suh Other Interventions: Discharge Summary Assessment (RN) Last Done: 01/13/21 14:04 Coding Level of Care Code D/C Day Management >30 mins Diagnoses Pneumonia due to 2019 novel coronavirus U07.1; J12.82
== END 2021-01-13 15:38 | disposition home or self-care (01) | DRG 177 ==
LOC: ED 02:52 → 3N 04:48 → SUATTDRO 04:48 → 3N 06:32

== ENCOUNTER 2023-02-21 13:44 | Inpatient (IN) ==
[2023-02-21] MEDS ORDERED: SODIUM CHLORIDE 0.9% 1000ML 1,000 ML IV STA (13:57)
--- NOTE | 2023-02-21 14:01 | Emergency Department Note ---
Impression & Plan Renal colic on right side, Hydroureteronephrosis, Right distal ureteral calculus ED Provider Note NAME: SILVIO HAYS AGE: 47 SEX: F : 1975 ARRIVES VIA: Ambulance INFORMANT: Patient, ED PROVIDER(S): Humberto Zamudio DO CHIEF COMPLAINT: Flank pain HPI: The patient is a 47-year-old female who arrived via ambulance for an evaluation of flank pain. The patient was seen in our facility yesterday for similar complaints. The patient states that she was seen in our facility yesterday for flank pain. She states that she was diagnosed with a distal ureteral calculus with hydronephrosis. She was feeling much better whenever she was discharged to home. She arrives today because of a return of her pain. She states the pain was moderate to severe. She also started having severe nausea vomiting. She called 911. She was given Toradol and Zofran prior to arrival. She states that she only has minimal relief of her symptoms. The patient has no history of previous kidney stone. She has not seen her family doctor for the symptoms. She states her pain is moderate to severe at this time. She denies having any fever. She denies having any diarrhea. She has no chest pain or difficulty breathing. ROS: See above HPI for pertinent positives & negatives. A total of 10 systems reviewed and were otherwise negative. PAST MEDICAL HISTORY: See Below PAST SURGICAL HISTORY: See Below FAMILY HISTORY: See Below SOCIAL HISTORY: See Below HOME MEDICATIONS: See Below ALLERGIES: See Below VITALS: See Below PHYSICAL EXAMINATION: GENERAL: The patient is awake and alert. She is very anxious appearing. She appears to be in severe pain EYES: The conjunctivae are clear. The pupils are round and reactive. EARS, NOSE, MOUTH AND THROAT: The nose is without any evidence of any deformity. NECK: The neck is nontender and supple. RESPIRATORY: Normal respiratory effort is noted there is no evidence of wheezing rhonchi or rales CARDIOVASCULAR: Regular rate and rhythm noted there no murmurs rubs or gallops normal S1 normal S2. GASTROINTESTINAL: The abdomen is soft. There is right-sided tenderness to pal pation but no guarding rigidity. BACK: There is no midline tenderness. There is right CVA tenderness to percussion. MUSCULOSKELETAL/EXTREMITIES: There is no evidence of gross deformity full range of motion is noted in the hips and shoulders. SKIN: There is no obvious evidence of any rash. There are no petechiae, pallor or cyanosis noted. NEUROLOGIC: Patient is awake alert and oriented x3. MEDICAL DECISION MAKING: The patient is a 47-year-old female who presented to the emergency department for an evaluation of flank pain. The patient was seen in our facility recently with similar complaints. She was found of a distal right ureteral calculus. I did review the patient's recent visit as well as her recent CAT scan. The patient was treated with IV fluids and IV pain medication. She was reevaluated multiple times. I discussed her condition with the on-call urology group as well as the on-call [facility] hospitalist. Given the patient's degree of pain I do feel she may require further inpatient management or possibly a stent. They have agreed to evaluate the patient in the emergency department for further management and disposition. Triage Nursing notes reviewed. Prior medical records reviewed Vital Signs: reviewed and remarkable for no significant abnormalities Differential diagnosis: Renal colic, UTI, appendicitis, diverticulitis, mesenteric ischemia, aortic pathology, infections, inflammatory bowel disease, PUD, biliary pathology, as well as other pathologies. ER treatment provided: See below Diagnostics interpreted by me: ECG: none Cardiac Monitoring: An order was placed for continuous cardiac monitoring. The monitor shows a rate of 91 bpm with sinus rhythm. Laboratory studies: As stated above and show below. Imaging studies: See below. Radiographic imaging was reviewed by myself Consultation(s): I discussed this case with Jailyn who is on-call for the urology group. I discussed this case with Dr. Jaffe who is on-call for the [facility] hospitalist group Past Med/Surg History Medical History Morbid obesity with BMI of 50.0-59.9, adult Surgical History No pertinent past surgical history Family History Other No pertinent family history Social History Smoking Status: Never smoker Tobacco Type: Cigarettes Second Hand Exposure: No; Do You Dip or Chew Tobacco: No; Hx Alcohol Use: No Hx Substance Use: No Preferred Language: Grenadian Communication Ability: Effective Chemic Mangler Required: No Beliefs That Will Affect Care: None marital status: Current Living Situation: Spouse and Family Feels Safe at Home: Yes Assistive Devices: None Allergies Allergies Allergy/AdvReac Type Severity Reaction Status Date / Time No Known Allergies Allergy Verified 02/21/23 16:02 Home Meds Previous Rx's Medication Instructions Recorded medroxyprogesterone 150 mg/mL 150 mg IM Q3M #1 mL 10/11/22 intramuscular syringe ondansetron HCl 4 mg tablet 4 mg PO TID PRN nausea and 02/20/23 vomiting 5 days #15 tabs oxycodone 5 mg tablet 5 mg PO Q8H PRN pain #9 tabs 02/20/23 phenazopyridine 200 mg tablet 200 mg PO Q8H 6 doses #6 tabs 02/20/23 (Pyridium) tamsulosin 0.4 mg capsule (Flomax) 0.4 mg PO HS #10 caps 02/20/23 Results & Data (ED) Vital Signs Vital Signs - 24 hr 02/21/23 13:31 02/21/23 16:49 02/21/23 17:43 Temperature 36.4 C L Temperature Source Oral Pulse Rate 61 Pulse Rate [Right Finger] 91 H Pulse Rhythm Regular Pulse Rhythm [Right Finger] Regular Pulse Strength Normal Pulse Strength [Right Finger] Normal Respiratory Rate 22 16 18 Respiratory Effort / Characteristics Non-Labored Spontaneous Non-Labored Spontaneous Non-Labored Spontaneous Respiratory Depth Normal Normal Normal Respiratory Pattern Regular Regular Blood Pressure 130/84 Blood Pressure [Left Arm] 122/60 124/80 Blood Pressure Mean 99 Blood Pressure Mean [Left Arm] 80 94 Blood Pressure Position Lying Blood Pressure Position [Left Arm] Lying Lying Pulse Oximetry 99 96 99 Oxygen Delivery Method Room Air Room Air Room Air Sepsis Recent Fever Within 48 Hours No Sepsis New/Unexplained Change in Mental Status N/A Sepsis Action Taken by Nursing No Action Required Home Medications Current Medication List: was personally reviewed by me Laboratory Data Attestation: I reviewed the patient's lab results. 02/21/23 13:55 02/21/23 13:55 Lab Results 02/21/23 02/21/23 02/21/23 Range/Units 13:55 13:55 13:55 WBC 12.75 H (4.8-10.8) K/ul RBC 5.63 H (4.20-5.40) M/uL Hgb 13.5 (12.0-16.0) g/dl Hct 43.3 (37.0-47.0) % MCV 76.9 L (80.0-100.0) fL MCH 24.0 L (25.0-34.0) pg MCHC 31.2 L (32.0-36.0) g/dL RDW Std Deviation 42.4 (36.4-46.3) fL RDW Coeff of Cecilio 15.4 H (11.5-14.5) % Plt Count 260 (130-400) K/uL MPV 11.8 (9.4-12.4) fL Immature Gran % (Auto) 0.4 % Neut % (Auto) 82.7 % Lymph % (Auto) 10.0 % [place] % (Auto) 5.8 % Eos % (Auto) 0.9 % Baso % (Auto) 0.2 % Neut # (Auto) 10.54 H (1.40-6.50) K/uL Lymph # (Auto) 1.27 (1.2-3.4) K/uL [place] # (Auto) 0.74 H (0.11-0.59) K/uL Eos # (Auto) 0.12 (0-0.50) K/uL Baso # (Auto) 0.03 (0-0.2) K/uL Immature Gran # (Auto) 0.05 (0.01-0.20) K/uL Sodium 136 (136-145) mmol/L Potassium 4.3 (3.5-5.1) mmol/L Chloride 103 (98-107) mmol/L Carbon Dioxide 27 (21-32) mmol/L Anion Gap 6 (3-11) BUN 18 (6-23) mg/dl Creatinine 1.36 H (0.6-1.2) mg/dl Est Cr Clr Drug Dosing 88.4 ml/min Est GFR ( Amer) 54.0 ml/min Est GFR (Non-Af Amer) 46.6 ml/min BUN/Creatinine Ratio 13.2 (10-20) Glucose 107 H (70-99(Fasting)) mg/dl Calcium 9.1 (8.6-10.3) mg/dl Total Bilirubin 0.5 (0.2-1.0) mg/dl AST 16 (13-39) U/L ALT 16 (7-52) U/L Alkaline Phosphatase 74 (34-104) U/L Total Protein 7.0 (6.0-8.3) gm/dl Albumin 3.8 (3.4-5.0) gm/dl Globulin 3.2 (2.5-4.0) gm/dl Albumin/Globulin Ratio 1.2 (0.9-2) Lipase 12 (11-82) U/L HCG, Qual Negative (Negative) Urine Color Urine Appearance (Clear) Urine pH (4.5-7.5) Ur Specific [place] (1.000-1.030) Urine Protein (Negative) Urine Glucose (UA) (Negative) Urine Ketones (Negative) Urine Blood (Negative) Urine Nitrite (Negative) Urine Bilirubin (Negative) Urine Urobilinogen (Negative) Ur Leukocyte Esterase (Negative) Urine WBC (Auto) (0-5) /hpf Urine RBC (Auto) (0-4) /hpf U Hyaline Cast (Auto) (0-5) /lpf U Epithel Cells (Auto) (0-5) /lpf Urine Bacteria (Auto) (Negative) SARS-CoV-2, RNA, NAAT (NEGATIVE) 02/21/23 02/21/23 Range/Units 15:35 15:35 WBC (4.8-10.8) K/ul RBC (4.20-5.40) M/uL Hgb (12.0-16.0) g/dl Hct (37.0-47.0) % MCV (80.0-100.0) fL MCH (25.0-34.0) pg MCHC (32.0-36.0) g/dL RDW Std Deviation (36.4-46.3) fL RDW Coeff of Cecilio (11.5-14.5) % Plt Count (130-400) K/uL MPV (9.4-12.4) fL Immature Gran % (Auto) % Neut % (Auto) % Lymph % (Auto) % [place] % (Auto) % Eos % (Auto) % Baso % (Auto) % Neut # (Auto) (1.40-6.50) K/uL Lymph # (Auto) (1.2-3.4) K/uL [place] # (Auto) (0.11-0.59) K/uL Eos # (Auto) (0-0.50) K/uL Baso # (Auto) (0-0.2) K/uL Immature Gran # (Auto) (0.01-0.20) K/uL Sodium (136-145) mmol/L Potassium (3.5-5.1) mmol/L Chloride (98-107) mmol/L Carbon Dioxide (21-32) mmol/L Anion Gap (3-11) BUN (6-23) mg/dl Creatinine (0.6-1.2) mg/dl Est Cr Clr Drug Dosing ml/min Est GFR ( Amer) ml/min Est GFR (Non-Af Amer) ml/min BUN/Creatinine Ratio (10-20) Glucose (70-99(Fasting)) mg/dl Calcium (8.6-10.3) mg/dl Total Bilirubin (0.2-1.0) mg/dl AST (13-39) U/L ALT (7-52) U/L Alkaline Phosphatase (34-104) U/L Total Protein (6.0-8.3) gm/dl Albumin (3.4-5.0) gm/dl Globulin (2.5-4.0) gm/dl Albumin/Globulin Ratio (0.9-2) Lipase (11-82) U/L HCG, Qual (Negative) Urine Color [place] Urine Appearance Clear (Clear) Urine pH 5.5 (4.5-7.5) Ur Specific [place] 1.017 (1.000-1.030) Urine Protein Negative (Negative) Urine Glucose (UA) Negative (Negative) Urine Ketones Negative (Negative) Urine Blood Negative (Negative) Urine Nitrite Positive A (Negative) Urine Bilirubin Negative (Negative) Urine Urobilinogen Negative (Negative) Ur Leukocyte Esterase 1+ H (Negative) Urine WBC (Auto) 1-5 (0-5) /hpf Urine RBC (Auto) 0-4 (0-4) /hpf U Hyaline Cast (Auto) 1-5 (0-5) /lpf U Epithel Cells (Auto) >30 H (0-5) /lpf Urine Bacteria (Auto) Negative (Negative) SARS-CoV-2, RNA, NAAT NEGATIVE (NEGATIVE) Administered Medications Cefazolin Sodium (Ancef 3000mg) 72.5 mls @ 130 mls/hr IV PREOP ONE; Protocol Stop: 02/21/23 18:13 Last Admin: 02/21/23 18:01 Dose: 130 mls/hr Documented By: BELINDA Morphine Sulfate (Morphine Sulfate 4 Mg/Ml 1 Ml Carp\\Vial) 4 mg IV Q15M PRN PRN Reason: Pain Stop: 03/07/23 13:56 Last Admin: 02/21/23 15:34 Dose: 4 mg Documented By: Admin: 02/21/23 14:37 Dose: 4 mg Documented By: Admin: 02/21/23 14:18 Dose: 4 mg Documented By: CARMELITA Discontinued Medications Sodium Chloride (Nss 1000ml) 1,000 mls @ 999 mls/hr IV .Q1H1M STA Stop: 02/21/23 14:57 Last Infusion: 02/21/23 16:10 Dose: 0 mls/hr Documented By: Admin: 02/21/23 14:18 Dose: 999 mls/hr Documented By: CARMELITA Tamsulosin HCl (Tamsulosin Hcl 0.4 Mg Cap) 0.4 mg PO NOW STA Stop: 02/21/23 16:15 Last Admin: 02/21/23 16:26 Dose: 0.4 mg Documented By: AGA Imaging Data Attestation: I personally reviewed and interpreted this imaging study as follows: My Impression: KUB was obtained in the emergency department. My interpretation is no free air, nonspecific bowel gas pattern, final report below. Radiologist's Impression: KUB X-Ray 02/21/23 16:00 KUB HISTORY: Acute right-sided flank pain right flank pain COMPARISON: CT 02/20/2023 FINDINGS: Nonobstructive bowel gas pattern. Persistent right-sided hydronephrosis with contrast noted within the dilated renal collecting system and ureter. 4 mm radiodensity noted within the right hemipelvis on image 1. Moderate degeneration of the pubic symphysis. No pneumoperitoneum or pneumatosis. No fracture. IMPRESSION: 1. Limited exam secondary to positioning, obscuring bowel gas and patient body habitus. 2. Persistent right-sided hydroureteronephrosis. 3. 4 mm radiodensity of the right hemipelvis may correlate with the previously described distal ureteral calculus. ACT 112: Negative or not required by law. The above report was generated using voice recognition software. It may contain grammatical, syntax or spelling errors. Electronically signed by: Moe Box M.D. 02/21/2023 4:58 PM Discharge Plan Visit Data Chief Complaint: Flank Pain Stated Complaint: R FLANK PAIN, KIDNEY STONE ED Provider: Humberto Zamudio Discharge Problem: Renal colic on right side, Hydroureteronephrosis, Right distal ureteral calculus Patient Disposition: Being Evaluated by Surgeon Discharge Instructions Interventions: ED Discharge Assessment Last Done: 02/21/23 17:47 Forms Stand Alone Forms: My [employer] Prescriptions Prescriptions: No Action medroxyprogesterone 150 mg/mL syringe 150 mg IM Q3M Qty: 1 3RF phenazopyridine [Pyridium] 200 mg tablet 200 mg PO Q8H Qty: 6 0RF ondansetron HCl 4 mg tablet 4 mg PO TID PRN (Reason: nausea and vomiting) 5 Days Qty: 15 0RF tamsulosin [Flomax] 0.4 mg capsule 0.4 mg PO HS Qty: 10 0RF Rx Instructions: PER PT "WOULD PREFER TO TAKE IN AM". oxycodone 5 mg tablet 5 mg PO Q8H PRN (Reason: pain) Qty: 9 0RF Referrals Referrals: Farnaz Suh PA-C [Primary Care Provider] -
[2023-02-21] MEDS: MoRPHine SULFATE 4 MG/ML 1 ML CARP\\VIAL IV PRN ×3 (14:18→15:34)
[2023-02-21 14:51] LABS: Albumin Globulin Ratio 1.2 (0.9-2); Albumin Level 3.8 gm/dl (3.4-5.0); BUN Creatinine Ratio 13.2 (10-20); Bilirubin,Total 0.5 mg/dl (0.2-1.0); Calcium 9.1 mg/dl (8.6-10.3); Creatinine Clr Calc Pharmacy 88.4 ml/min; Est GFR (Non-African American) 46.6 ml/min; Globulin 3.2 gm/dl (2.5-4.0); Potassium 4.3 mmol/L (3.5-5.1)
[2023-02-21 14:59] LABS: Pregnancy Test, Serum Negative (Negative)
[2023-02-21 15:12] LABS: Basophils # (auto) 0.03 K/uL (0-0.2); Basophils % (auto) 0.2 %; Eosinophils # (auto) 0.12 K/uL (0-0.50); Eosinophils % (auto) 0.9 %; Hematocrit (blood only) 43.3 % (37.0-47.0); Hemoglobin 13.5 g/dl (12.0-16.0); Immature Granulocytes # (auto) 0.05 K/uL (0.01-0.20); Immature Granulocytes % (auto) 0.4 %; Lymphocytes # (auto) 1.27 K/uL (1.2-3.4); Mean Corpuscular Hgb Conc 31.2 g/dL (32.0-36.0); Mean Corpuscular Volume 76.9 fL (80.0-100.0); Mean Platelet Volume 11.8 fL (9.4-12.4); Monocytes # (auto) 0.74 K/uL (0.11-0.59); Monocytes % (auto) 5.8 %; Neutrophils # (auto) 10.54 K/uL (1.40-6.50); Neutrophils % (auto) 82.7 %; Platelet Count 260 K/uL (130-400); RDW Coefficient of Variation 15.4 % (11.5-14.5); RDW Standard Deviation 42.4 fL (36.4-46.3); Red Blood Count 5.63 M/uL (4.20-5.40); White Blood Count 12.75 K/ul (4.8-10.8)
[2023-02-21 16:02] LABS: Appearance Urine Clear (Clear); Bacteria Urine Automated Negative (Negative); Bilirubin Urine Negative (Negative); Blood Urine Negative (Negative); Color Urine Orange; Epithelial Cell Urine Auto >30 /lpf (0-5); Glucose Urine UA Negative (Negative); Ketones Urine Negative (Negative); Leukocyte Esterase Urine 1+ (Negative); Nitrite Urine Positive (Negative); Protein Urine Negative (Negative); RBC Urine Automated 0-4 /hpf (0-4); Specific Gravity Urine 1.017 (1.000-1.030); Urobilinogen Urine Negative (Negative); pH Urine 5.5 (4.5-7.5)
[2023-02-21] MEDS ORDERED: TAMSULOSIN HCL 0.4 MG CAP PO STA (16:14)
[2023-02-21] MEDS ORDERED: SODIUM CHLORIDE 0.9% 1000ML 1,000 ML IV ONE (16:17)
--- NOTE | 2023-02-21 17:00 | XRay Report ---
KUB HISTORY: Acute right-sided flank pain right flank pain COMPARISON: CT 02/20/2023 FINDINGS: Nonobstructive bowel gas pattern. Persistent right-sided hydronephrosis with contrast noted within the dilated renal collecting system and ureter. 4 mm radiodensity noted within the right vane pelvis on image 1. Moderate degeneration of the pubic symphysis. No pneumoperitoneum or pneumatosis. No fracture. IMPRESSION: 1. Limited exam secondary to positioning, obscuring bowel gas and patient body habitus. 2. Persistent right-sided hydroureteronephrosis. 3. 4 mm radiodensity of the right hemipelvis may correlate with the previously described distal urete ral calculus. ACT 112: Negative or not required by law. The above report was generated using voice recognition software. It may contain grammatical, syntax o r spelling errors. Electronically signed by: Moe Box M.D. 02/21/2023 4:58 PM
--- NOTE | 2023-02-21 17:18 | Urology Consultation ---
Date of Consultation February 21, 2023 Assessment & Plan (1) Right distal ureteral calculus: Plan 47-year-old female with a 4 mm right distal ureteral calculus Reviewed labs and CT scan Discussed options with the patient which would be continued medical expulsive therapy versus going to the OR for cystoscopy with stent placement and possible stone treatment if stone easily reachable and no concerns for infection intraoperatively. Patient would prefer to proceed with surgery due to pain Risk and benefits discussed including but not limited to anesthesia risk, pain, bleeding, infection, damage to any structures and working through, need for further procedures or nephrostomy tube Consent obtained, patient marked Ancef to the OR History of Present Illness Reason for Consultation: Right distal ureteral calculus History of Present Illness 47-year-old morbidly obese female with a 4 mm right distal ureteral calculus. She was seen in the ED yesterday and sent out on medical expulsive therapy. She returns today with worsening pain. She was afebrile with stable vitals. Labs show a white blood cell count of 12.7, a creatinine of 1.36, and a urinalysis that was nitrite positive with 1+ leukocyte esterase but 0-4 RBCs, 1-5 WBCs and no bacteria. A urine culture done yesterday was mixed dre. She is on Pyridium which may likely be the reason she was nitrite positive. She denies any fevers or chills at home. She has never had any stones before. Allergies Allergy/AdvReac Type Severity Reaction Status Date / Time No Known Allergies Allergy Verified 02/21/23 16:02 Home Medications Medication Instructions Recorded Confirmed Type medroxyprogesterone 150 mg/mL 150 mg IM Q3M #1 mL 10/11/22 02/21/23 Rx intramuscular syringe ondansetron HCl 4 mg tablet 4 mg PO TID PRN nausea and 02/20/23 02/21/23 Rx vomiting 5 days #15 tabs oxycodone 5 mg tablet 5 mg PO Q8H PRN pain #9 tabs 02/20/23 02/21/23 Rx phenazopyridine 200 mg tablet 200 mg PO Q8H 6 doses #6 tabs 02/20/23 02/21/23 Rx (Pyridium) tamsulosin 0.4 mg capsule (Flomax) 0.4 mg PO HS #10 caps 02/20/23 02/21/23 Rx Patient History Medical History Morbid obesity with BMI of 50.0-59.9, adult Surgical History No pertinent past surgical history Family History Other No pertinent family history Social History Smoking Status: Never smoker Tobacco Type: Cigarettes Second Hand Exposure: No; Do You Dip or Chew Tobacco: No; Hx Alcohol Use: No Hx Substance Use: No Preferred Language: Yakut Communication Ability: Effective Timber Deadener Required: No Beliefs That Will Affect Care: None marital status: Current Living Situation: Spouse and Family Feels Safe at Home: Yes Assistive Devices: None Review of Systems Review of Systems: 14 point review of systems negative outside of what is listed above in HPI Physical Exam Physical Exam: General: Alert and oriented, no acute distress HEENT: Normocephalic, mucous membranes moist Pulmonary: Nonlabored respirations Abdomen: Nondistended Extremities: Moves all 4 spontaneously Neuro: No gross deficits Skin: Warm, dry, no rashes noted Results & Data Vital Signs (Past 12 Hours) Vital Signs Temp Pulse Pulse Resp BP BP Pulse Ox 02/21/23 16:49 91 H 16 122/60 96 02/21/23 13:31 36.4 C L 61 22 130/84 99 O2 Del Method 02/21/23 16:49 Room Air 02/21/23 13:31 Room Air PG Care Time/CCT Total # of Minutes Spent Total Time Spent with Patient: Total time spent is greater than 50% in coordination of care (as documented) at patient's floor/unit and/or counseling patient: Coding Level of Care Code 25122 OFFICE CONSULT LVL M Diagnoses Right distal ureteral calculus N20.1
[2023-02-21] MEDS ORDERED: MIDAZOLAM HCL 1 MG/ML 2ML VIAL ONE (17:31)
[2023-02-21] MEDS ORDERED: fentaNYL citrate PF 100 MCG/2 ML VIAL ONE (17:31)
--- NOTE | 2023-02-21 17:34 | Anesthesiology Consultation ---
Date of Service February 21, 2023 Assessment & Plan Chart Review Chart Review: Acceptable Risk for Surgery Consults Requested none ASA ASA3 Proposed Anesthesia Anesthesia Type: General Risk / Benefits Reviewed With: PT / POA / Parent / Guardian, Accepts Plan and Informed Consent Obtained History Surgery Operation Date: 02/21/23 18:00 Proposed Procedures p Cystoscopy Retrograde, Right stent placement(Right) - Ramone Xie MD Height/Weight Height: 5 ft 6 in Weight: 182 kg Allergies Allergy/AdvReac Type Severity Reaction Status Date / Time No Known Allergies Allergy Verified 02/21/23 16:02 Medications Home Medications Medication Instructions Recorded Confirmed Last Taken medroxyprogesterone 150 mg/mL 150 mg IM Q3M #1 mL 10/11/22 02/21/23 02/02/23 intramuscular syringe ondansetron HCl 4 mg tablet 4 mg PO TID PRN nausea and 02/20/23 02/21/23 02/21/23 10:45 vomiting 5 days #15 tabs oxycodone 5 mg tablet 5 mg PO Q8H PRN pain #9 tabs 02/20/23 02/21/23 02/21/23 10:45 phenazopyridine 200 mg tablet 200 mg PO Q8H 6 doses #6 tabs 02/20/23 02/21/23 02/21/23 11:00 (Pyridium) tamsulosin 0.4 mg capsule (Flomax) 0.4 mg PO HS #10 caps 02/20/23 02/21/23 Unknown Active Medications Generic Name Dose Route Start Last Admin Trade Name Freq PRN Reason Stop Dose Admin Morphine Sulfate 4 mg 02/21/23 13:57 02/21/23 15:34 Morphine Sulfate 4 Mg/Ml 1 Ml Carp\Vial IV 03/07/23 13:56 4 mg Q15M PRN Administration Pain NPO Date Last Intake of Fluids: 02/21/23 Time Last Intake of Fluids: 12:00 Date Last Intake of Solids: 02/21/23 Time Last Intake of Solids: 09:00 Past Medical History Medical History Morbid obesity with BMI of 50.0-59.9, adult Exercise / Class Metabolic Activity II 4-5 Yardwork/Stairs/Walk up hill Past Family History Family History Other No pertinent family history Past Surgical History Surgical History No pertinent past surgical history Past Anesthesia History No Hx of Anesthesia Complications and No Family Hx of Anesthesia Complications History of PONV No Hx of PONV and No Hx of Motion Sickness Social History Smoking Status: Never smoker Do You Dip or Chew Tobacco: No Hx Alcohol Use: No Hx Substance Use: No substance use type: does not use Physical Exam Vital Signs Last Vital Signs Temp 97.5 F L 02/21/23 13:31 Pulse 91 H 02/21/23 16:49 Resp 16 02/21/23 16:49 BP 122/60 02/21/23 16:49 Pulse Ox 96 02/21/23 16:49 O2 Del Method Room Air 02/21/23 16:49 ENMT Mouth: no dentition abnormality Thyromental Distance: > or= 3.5 Finger Breadths Mallampati Class: II Neck normal visual inspection Respiratory normal respiratory effort Auscultation: lungs clear to auscultation bilaterally Cardiovascular Rate/Rhythm: regular rate and regular rhythm Testing Laboratory Results 02/21/23 13:55 02/21/23 13:55 Urine Color [place] 02/21/23 15:35 Urine Appearance Clear (Clear) 02/21/23 15:35 Urine pH 5.5 (4.5-7.5) 02/21/23 15:35 Ur Specific [place] 1.017 (1.000-1.030) 02/21/23 15:35 Urine Protein Negative (Negative) 02/21/23 15:35 Urine Glucose (UA) Negative (Negative) 02/21/23 15:35 Urine Ketones Negative (Negative) 02/21/23 15:35 Urine Nitrite Positive (Negative) A 02/21/23 15:35 Ur Leukocyte Esterase 1+ (Negative) H 02/21/23 15:35 Urine WBC (Auto) 1-5 /hpf (0-5) 02/21/23 15:35 Urine RBC (Auto) 0-4 /hpf (0-4) 02/21/23 15:35 U Hyaline Cast (Auto) 1-5 /lpf (0-5) 02/21/23 15:35 U Epithel Cells (Auto) >30 /lpf (0-5) H 02/21/23 15:35 Urine Bacteria (Auto) Negative (Negative) 02/21/23 15:35
[2023-02-21] MEDS ORDERED: ePHEDrine sulfate 50 MG/ML AMP IV PRN (17:42)
[2023-02-21] MEDS ORDERED: ATROPINE SULFATE 0.1 MG/ML 10ML SYR IV PRN (17:42)
[2023-02-21] MEDS ORDERED: fentaNYL citrate PF 100 MCG/2 ML VIAL IV PRN (17:42)
[2023-02-21] MEDS ORDERED: ONDANSETRON INJ 2 MG/ML 2 ML VIAL IV PRN ×2 (17:42→21:00)
[2023-02-21] MEDS ORDERED: DEXAMETHASONE SOD INJ 4 MG/ML VIAL ONE (18:19)
[2023-02-21] MEDS ORDERED: ONDANSETRON INJ 2 MG/ML 2 ML VIAL ONE (18:19)
[2023-02-21] MEDS ORDERED: PROPOFOL IV EMULSION 10 MG/ML 20 ML VIAL IV ONE (18:19)
[2023-02-21] MEDS ORDERED: LIDOCAINE 2% 2 ML VIAL/AMP(20MG/ML) INFIL ONE (18:19)
[2023-02-21] MEDS ORDERED: diphenhydrAMINE 50 MG/ML VIAL ONE (18:20)
[2023-02-21] MEDS ORDERED: GLYCOPYRROLATE 0.2 MG/ML VIAL ONE (18:20)
[2023-02-21] MEDS ORDERED: DIATRIZOATE MEGLUMINE 30% 100ML VIAL INSTIL PRN (18:29)
[2023-02-21] MEDS ORDERED: SUCCINYLCHOLINE CHLORIDE 20 MG/ML 10 ML VIAL IV ONE (18:37)
--- NOTE | 2023-02-21 18:41 | Post Operative Brief Note ---
PG Immediate Post Op with CF Date of Surgery February 21, 2023 Pre & Post Diagnosis Operation Date: 02/21/23 18:00 Pre-Op Diagnosis: Right distal ureteral calculus Post-Op Diagnosis: Right distal ureteral calculus I identified the patient and participated in the time-out.: Yes Procedure Operation Date: 02/21/23 18:00 Actual Procedures p Cystoscopy Retrograde, right ureteroscopy, basket stone extraction right stent placement(Right) - Raomne Xie MD Surgeon Ramone Xie MD Test Eng None Estimated Blood Loss 0 Findings See Below Stone in distal ureter, basketed out. Retrograde showed no extravasation. Stent in appropriate position left on a string. Specimens Specimen Description: A. Right ureteral calculus for chemical analysis Drains Other (6 English by 24 cm right ureteral stent) Anesthesia Type General Complications none
--- NOTE | 2023-02-21 18:42 | Operative Report ---
PG Post Operative Report Pre & Post Diagnosis Operation Date: 02/21/23 18:00 Pre-Op Diagnosis: Right distal ureteral calculus Post-Op Diagnosis: Right distal ureteral calculus I identified the patient and participated in the time-out.: Yes Procedure Operation Date: 02/21/23 18:00 Actual Procedures p Cystoscopy, retrograde pyelogram with radiographic interpretation, right ureteroscopy, basket stone extraction, Right stent placement(Right) - Ramone Xie MD Surgeon Ramone Xie MD Tube Builder Airplane None Estimated Blood Loss 0 Findings See Below Stone in distal ureter. Basketed out. Retrograde showed no filling defects or extravasation. Stent in appropriate position left on a string Specimens Right ureteral calculus Drains 6 Guamanian by 24 cm right ureteral stent with extraction string Anesthesia Type General Complications none Indications 47-year-old female with a 4 mm distal ureteral calculus with intractable pain. Risk and benefits discussed and proceeded to OR for stent and possible stone tr eatment Description of Procedure After informed consent was obtained, the patient was transported operative suite. General anesthesia was induced. The patient was placed in dorsolithotomy position prepped and draped in a sterile fashion. They received preoperative ancef for antibiotic prophylaxis. An appropriate surgical timeout was performed. A 22 Guamanian rigid scope was inserted per urethra into the bladder. Cabrera cystoscopy revealed no stones or lesions. I turned my attention the right ureteral orifice and intubated this with a 5 Guamanian open-ended catheter. A sensor wire was advanced into the kidney and confirmed fluoroscopically. I advanced a semirigid ureteroscopy into the distal ureteral. I visualized the stone. Using a 0 tip nitinol basket, I basketed this out atraumatically. I shot a retrograde pyelogram with the 5 Guamanian which showed no extrav or filling a defects. A 6 Guamanian by 24 cm right ureteral stent was deployed with a good proximal coil in the renal pelvis and a good distal coil noted in the bladder, confirmed fluoroscopically and under direct visualization, respectively. The stent was left on a string and taped to the lower abdomen with mastisol and tegaderm. The bladder was emptied and the scope was removed. This concluded the end of the case. All counts were correct at the end of the case. Stent can be removed by patient on 02/25/23. I was present, scrubbed, and actively participated for the entirety of the procedure. I attest to the content of the Intraoperative Record and any orders documented therein. Any exceptions are noted below.
--- NOTE | 2023-02-21 19:24 | Fluoroscopy Report ---
FL retrograde includes kub CLINICAL HISTORY: RETROGRADE AND STENT TECHNIQUE: 7 views were obtained with the C-arm in the OR with the above procedure. Total fluoroscopy time was 22 seconds. Radiation dose was 16.67 mGy. Comparison: Comparison is made to CT abdomen pelvis 02/20/2023 FINDINGS/IMPRESSION: Intraoperative images were obtained of right retrograde pyelogram and nephrouret eral stent placement. Please correlate with intraoperative fluoroscopy and operative report. ACT 112: Negative or not required by law. Electronically signed by: Jluis Baldwin M.D. 02/21/2023 7:23 PM
--- NOTE | 2023-02-21 20:55 | Anesthesiology Progress Note ---
Date of Service February 21, 2023 Anesthesia Post Procedure Vital Signs Vital Signs: Temp Pulse Pulse Pulse Resp BP BP 02/21/23 20:40 73 22 02/21/23 20:31 98.6 F 82 17 02/21/23 20:05 84 16 160/89 H 02/21/23 20:00 98.6 F 92 H 16 185/120 H 02/21/23 19:30 97.7 F 92 H 19 160/89 H 02/21/23 19:20 100 H 17 138/93 02/21/23 19:10 105 H 15 123/83 02/21/23 19:01 98.1 F 105 H 18 179/95 H 02/21/23 17:43 18 124/80 02/21/23 16:49 91 H 16 122/60 02/21/23 13:31 97.5 F L 61 22 130/84 BP Pulse Ox O2 Del Method O2 Flow Rate 02/21/23 20:40 165/59 H 96 Nasal Cannula 2 02/21/23 20:31 166/77 H 84 L Room Air 02/21/23 20:05 140/72 97 Nasal Cannula 2 02/21/23 20:00 79 L Room Air 02/21/23 19:30 96 Room Air 02/21/23 19:20 95 Room Air, Oxymask 02/21/23 19:10 93 Room Air, Oxymask 02/21/23 19:01 100 Room Air, Oxymask 02/21/23 17:43 99 Room Air 02/21/23 16:49 96 Room Air 02/21/23 13:31 99 Room Air Pain Intensity Right Flank: Pain Intensity: 7 Transfer of Care Handoff Completed per policy Notes Mental Status: alert / awake / arousable and participated in evaluation Patient Amnestic to Procedure: Yes Nausea / Vomiting: adequately controlled Pain: adequately controlled Airway Patency, RR, SpO2: stable & adequate BP & HR: stable & adequate Hydration State: stable & adequate Anesthetic Complications: no major complications apparent and Pt Satisfied with anesthetic care Notes: Patient was assessed in PACU. The patient stated she was sleepy and her O2 saturations were in the low 80s on room air. The patient was otherwise stable. The patient was to be admitted for closer observation with a continuous pulse oximeter.
[2023-02-21] MEDS ORDERED: ACETAMINOPHEN 325 MG TAB PO PRN (21:00)
[2023-02-21 21:43] LABS: Base Excess ABG 0.1 mEq/L (-9-1.8); HCO3 ABG 26 mmol/L (19-24); Oxygen Saturation ABG 95.7 % (90-95); PCO2 ABG 46 mmHg (35-46); PO2 ABG 77 mmHg (80-95); pH ABG 7.36 (7.35-7.45)
[2023-02-21 21:44] LABS: Allen Test POS (Pos)
[2023-02-21] MEDS ORDERED: cefTRIAXone SODIUM 2,000 MG in DEXTROSE 5% 50 ML IV STA (22:20)
--- NOTE | 2023-02-21 22:20 | History & Physical Report ---
Date of Service February 21, 2023 Assessment & Plan (1) Right distal ureteral calculus: Plan: S/p ureteral stent insertion Ceftriaxone 1g IV now pending urine culture Acetaminophen 1st line, oxycodone 2nd line for pain Appreciate urology management of this (2) Postoperative hypoxia: Plan: ABG without hypercapnia - no indication for NIV Aim O2 sats > 90% Suspect due to obesity hypoventilation Chest CTAB If still hypoxic in AM or getting worse overnight suggest CXR, she was not hypoxic prior to the operation Continue incentive spirometer (3) Restless leg syndrome: Plan: Suspected from history. Given low MCV recommend iron studies with her PCP as likely she is iron deficient. (4) Morbid obesity with BMI of 60.0-69.9, adult: Plan: Follow up with PCP Plan VTE Prophylaxis - deferred post operatively Diet - regular Disposition - admit to med/surg Admission and Anticipated Discharge Date Admission Date: February 21, 2023 History of Present Illness Chief Complaint: Post operative hypoxia, renal colic Primary Care Provider: Farnaz Suh PA-C Geetha Bosch is a 47 year old female who presents to the ER due to ongoing renal colic pain with 4mm stone diagnosed yesterday. She was taken to the OR from the ER for ureteral stent insertion. Renal colic pain improved s/p stent insertion. Initial plan was for discharge following this. Mild right flank tenderness. No dysuria. No fever or chills. Post operative she has had difficulty with oxygen recovery. Currently maintaining O2 sats > 90% on 2LPM O2 but appears very lethargic. Anesthesiology therefore requesting admission overnight. Allergies Allergy/AdvReac Type Severity Reaction Status Date / Time No Known Allergies Allergy Verified 02/21/23 16:02 Home Medications Medication Instructions Recorded Confirmed Type medroxyprogesterone 150 mg/mL 150 mg IM Q3M #1 mL 10/11/22 02/21/23 Rx intramuscular syringe ondansetron HCl 4 mg tablet 4 mg PO TID PRN nausea and 02/20/23 02/21/23 Rx vomiting 5 days #15 tabs oxycodone 5 mg tablet 5 mg PO Q8H PRN pain #9 tabs 02/20/23 02/21/23 Rx phenazopyridine 200 mg tablet 200 mg PO Q8H 6 doses #6 tabs 02/20/23 02/21/23 Rx (Pyridium) tamsulosin 0.4 mg capsule (Flomax) 0.4 mg PO HS #10 caps 02/20/23 02/21/23 Rx oxybutynin chloride 5 mg 5 mg PO DAILY #7 tabs 02/21/23 Rx tablet,extended release 24 hr (Ditropan XL) sulfamethoxazole 800 1 tab PO BID #10 tabs 02/21/23 Rx mg-trimethoprim 160 mg tablet (Bactrim DS) Past Med/Surg History Medical History Morbid obesity with BMI of 60.0-69.9, adult Pneumonia due to 2019 novel coronavirus Viral syndrome Surgical History No pertinent past surgical history Family History Other No pertinent family history Social History Smoking Status: Never smoker Tobacco Type: Cigarettes Second Hand Exposure: No; Do You Dip or Chew Tobacco: No; Hx Alcohol Use: No Hx Substance Use: No Preferred Language: Spanish Communication Ability: Effective Dry Kiln Loader Required: No Beliefs That Will Affect Care: None marital status: Current Living Situation: Spouse Feels Safe at Home: Yes Safety Concerns: Feels Safe At This Time Assistive Devices: Glasses Review of Systems Review of Systems: All systems reviewed & are unremarkable except as noted in HPI & below Physical Exam Constitutional: well developed; + not well nourished and no acute distress Eyes: + anicteric sclerae; normal pupil size ENMT: external ear and nose normal, oropharynx normal Respiratory: able to speak in complete sentences; + abnormal respiratory effort (poor, postoperatively), no respiratory distress, no labored breathing and does not use accessory muscles Cardiovascular: RRR, no murmur, no edema Gastrointestinal (Abdomen): Percussion/Palpation: + abdomen tender (RLQ) and abdomen soft; no guarding and abdomen not rigid Musculoskeletal: no cyanosis or clubbing, extremities motor strength 5/5 Skin: no rashes, warm and dry Neurologic: moves all extremities and awake; not confused Psychiatric: A+Ox3, euthymic affect Results & Data Results & Data Vital Signs (Past 12 Hours) Vital Signs Temp Pulse Pulse Pulse Resp BP BP 02/21/23 21:40 77 16 02/21/23 21:10 36.5 C 72 20 02/21/23 20:55 72 19 02/21/23 20:40 73 22 02/21/23 20:31 37.0 C 82 17 02/21/23 20:05 84 16 160/89 H 02/21/23 20:00 37.0 C 92 H 16 185/120 H 02/21/23 19:30 36.5 C 92 H 19 160/89 H 02/21/23 19:20 100 H 17 138/93 02/21/23 19:10 105 H 15 123/83 02/21/23 19:01 36.7 C 105 H 18 179/95 H 02/21/23 17:43 18 124/80 02/21/23 16:49 91 H 16 122/60 02/21/23 13:31 36.4 C L 61 22 130/84 BP Pulse Ox O2 Del Method O2 Flow Rate 02/21/23 21:40 138/70 95 Nasal Cannula 2 02/21/23 21:10 148/77 H 96 Nasal Cannula 2 02/21/23 20:55 169/59 H 96 Nasal Cannula 2 02/21/23 20:40 165/59 H 96 Nasal Cannula 2 02/21/23 20:31 166/77 H 84 L Room Air 02/21/23 20:05 140/72 97 Nasal Cannula 2 02/21/23 20:00 79 L Room Air 02/21/23 19:30 96 Room Air 02/21/23 19:20 95 Room Air, Oxymask 02/21/23 19:10 93 Room Air, Oxymask 02/21/23 19:01 100 Room Air, Oxymask 02/21/23 17:43 99 Room Air 02/21/23 16:49 96 Room Air 02/21/23 13:31 99 Room Air Laboratory Results Abnormal lab results 02/21/23 02/21/23 02/21/23 Range/Units 13:55 13:55 15:35 WBC 12.75 H (4.8-10.8) K/ul RBC 5.63 H (4.20-5.40) M/uL MCV 76.9 L (80.0-100.0) fL MCH 24.0 L (25.0-34.0) pg MCHC 31.2 L (32.0-36.0) g/dL RDW Coeff of Cecilio 15.4 H (11.5-14.5) % Neut # (Auto) 10.54 H (1.40-6.50) K/uL [place] # (Auto) 0.74 H (0.11-0.59) K/uL ABG pO2 (80-95) mmHg ABG HCO3 (19-24) mmol/L ABG O2 Saturation (90-95) % Creatinine 1.36 H (0.6-1.2) mg/dl Glucose 107 H (70-99(Fasting)) mg/dl Urine Nitrite Positive A (Negative) Ur Leukocyte Esterase 1+ H (Negative) U Epithel Cells (Auto) >30 H (0-5) /lpf 02/21/23 Range/Units 21:18 WBC (4.8-10.8) K/ul RBC (4.20-5.40) M/uL MCV (80.0-100.0) fL MCH (25.0-34.0) pg MCHC (32.0-36.0) g/dL RDW Coeff of Cecilio (11.5-14.5) % Neut # (Auto) (1.40-6.50) K/uL [place] # (Auto) (0.11-0.59) K/uL ABG pO2 77 L (80-95) mmHg ABG HCO3 26 H (19-24) mmol/L ABG O2 Saturation 95.7 H (90-95) % Creatinine (0.6-1.2) mg/dl Glucose (70-99(Fasting)) mg/dl Urine Nitrite (Negative) Ur Leukocyte Esterase (Negative) U Epithel Cells (Auto) (0-5) /lpf Diagnostic Findings KUB HISTORY: Acute right-sided flank pain right flank pain COMPARISON: CT 02/20/2023 FINDINGS: Nonobstructive bowel gas pattern. Persistent right-sided hydronephrosis with contrast noted within the dilated renal collecting system and ureter. 4 mm radiodensity noted within the right hemipelvis on image 1. Moderate degeneration of the pubic symphysis. No pneumoperitoneum or pneumatosis. No fracture. IMPRESSION: 1. Limited exam secondary to positioning, obscuring bowel gas and patient body habitus. 2. Persistent right-sided hydroureteronephrosis. 3. 4 mm radiodensity of the right hemipelvis may correlate with the previously described distal ureteral calculus. Medications Administered ER Medications Given: NSS 1L Morphine 4mg IV x3 Code Status & VTE Plan Code Status Full VTE Prophylaxis Plan VTE Prophylaxis will be ordered: No PG Care Time/CCT Total # of Minutes Spent Total Time Spent with Patient: Total time spent is greater than 50% in coordination of care (as documented) at patient's floor/unit and/or counseling patient: Coding Level of Care Code 33816 INT INP/OBS CARE 2/55MIN Diagnoses Right distal ureteral calculus N20.1 Postoperative hypoxia R09.02; Z98.890 Restless leg syndrome G25.81 Morbid obesity with BMI of 60.0-69.9, adult E66.01; Z68.44
[2023-02-21] MEDS ORDERED: oxyCODONE HCL IR 5 MG TAB (IMMEDIATE RELEASE) PO PRN (22:26)
--- NOTE | 2023-02-22 11:08 | Discharge Summary ---
Discharge Summary Date of Service February 22, 2023 Admission HPI Per Admitting Provider Geetha Bosch is a 47 year old female who presents to the ER due to ongoing renal colic pain with 4mm stone diagnosed yesterday. She was taken to the OR from the ER for ureteral stent insertion. Renal colic pain improved s/p stent insertion. Initial plan was for discharge following this. Mild right flank tenderness. No dysuria. No fever or chills. Post operative she has had difficulty with oxygen recovery. Currently maintaining O2 sats > 90% on 2LPM O2 but appears very lethargic. Anesthesiology therefore requesting admission overnight. Admission Exam Per Admitting Provider Constitutional: well developed; + not well nourished and no acute distress Eyes: + anicteric sclerae; normal pupil size ENMT: external ear and nose normal, oropharynx normal Respiratory: able to speak in complete sentences; + abnormal respiratory effort (poor, postoperatively), no respiratory distress, no labored breathing and does not use accessory muscles Cardiovascular: RRR, no murmur, no edema Gastrointestinal (Abdomen): Percussion/Palpation: + abdomen tender (RLQ) and abdomen soft; no guarding and abdomen not rigid Musculoskeletal: no cyanosis or clubbing, extremities motor strength 5/5 Skin: no rashes, warm and dry Neurologic: moves all extremities and awake; not confused Psychiatric: A+Ox3, euthymic affect Principal Dx & Hospital Course #1 = Principal Diagnosis (1) Postoperative hypoxia: ABG without hypercapnia, with resolution in hypoxia throughout the night as she recovered from pain medications/anesthesia Suspect in part due to obesity hypoventilation Chest CTA bilaterally (2) Right distal ureteral calculus: S/p ureteral stent insertion Ceftriaxone 1g IV received, UA without bacteria and with large amount of epithelials Follow up with Urology (3) Restless leg syndrome: Suspected from history. Given low MCV recommend iron studies with her PCP as likely she is iron deficient (4) Morbid obesity with BMI of 60.0-69.9, adult: Morbid obesity with BMI 64.3 Follow up with PCP Plan Dispo: home with self care Discharge Exam Constitutional WD/WN, vitals as above Respiratory normal respiratory effort, lungs clear to auscultation Cardiovascular RRR, no murmur, no edema Psychiatric A+Ox3, euthymic affect Updated Medication List Medication Instructions Recorded Confirmed Type medroxyprogesterone 150 mg/mL 150 mg IM Q3M #1 mL 10/11/22 02/21/23 Rx intramuscular syringe ondansetron HCl 4 mg tablet 4 mg PO TID PRN nausea and 02/20/23 02/21/23 Rx vomiting 5 days #15 tabs oxycodone 5 mg tablet 5 mg PO Q8H PRN pain #9 tabs 02/20/23 02/21/23 Rx phenazopyridine 200 mg tablet 200 mg PO Q8H 6 doses #6 tabs 02/20/23 02/21/23 Rx (Pyridium) tamsulosin 0.4 mg capsule (Flomax) 0.4 mg PO HS #10 caps 02/20/23 02/21/23 Rx oxybutynin chloride 5 mg 5 mg PO DAILY #7 tabs 02/21/23 Rx tablet,extended release 24 hr (Ditropan XL) sulfamethoxazole 800 1 tab PO BID #10 tabs 02/21/23 Rx mg-trimethoprim 160 mg tablet (Bactrim DS) Hospital Stay Data Consultations 02/21/23 15:59 Consult Urology Stat 02/21/23 16:10 ED Decision to Admit Stat Procedures Performed Operation Date: 02/21/23 18:00 Actual Procedures p Cystoscopy, Retrograde Pyelogram-Right, Stone Basket Extraction, with Right Stent Placement - Ramone Xie MD Diagnostic Imagining Performed 02/21/23 FL retrograde includes kub Routine Pending Results Patient Have Any Pending Studies at Discharge: No Discharge Instructions Given to Patient (Per Discharging Provider) You were admitted to the hospital for monitoring of postoperative low oxygen levels. You had good recovery and you are not requiring any oxygen on day of discharge. We do not think that this is due to an infection. This is likely due to anesthesia and pain medications. We do not think that any urgent evaluation is necessary, but would follow-up with your family doctor about your hospitalization and a possible sleep study. Your kidney levels were a little elevated after your stent placement, this is not uncommon but would recommend follow-up lab work in about a week. Be sure to drink water, try to shoot for at least 3 water bottles daily, more than that if you usually drink that much. Total Time Total Time Spent Total Time Spent (In Minutes): 35 min Coding Level of Care Code 78106 INP/OBS DISCH >30 MIN Diagnoses Postoperative hypoxia R09.02; Z98.890 Right distal ureteral calculus N20.1 Restless leg syndrome G25.81 Morbid obesity with BMI of 60.0-69.9, adult E66.01; Z68.44
[2023-02-22 11:49] LABS: BUN Creatinine Ratio 15.7 (10-20); Calcium 9.1 mg/dl (8.6-10.3); Creatinine Clr Calc Pharmacy 104.1 ml/min; Est GFR (African American) 66.1 ml/min; Potassium 4.2 mmol/L (3.5-5.1)
--- NOTE | 2023-02-22 13:06 | Urology Progress Note ---
Date of Service February 22, 2023 Assessment & Plan (1) Right distal ureteral calculus: Plan: - Pt POD#1 s/p Cystoscopy, retrograde pyelogram, right ureteroscopy, basket stone extraction, Right stent placement - Doing well, progressing as expected - Afebrile, lab work reviewed - creatinine 1.15 - Tolerating right ureteral stent with minimal bother - Okay to d/c from perspective when medically stable - Recommend d/c with course of PO antibiotics, Tamsulosin, prn Pyridium and prn pain medication for stent management - Stent was placed on a tether and patient was given instructions on how and when to remove - Expected clinical course reviewed, all questions answered - Will arrange outpatient follow-up with our service Admission and Anticipated Discharge Date Admission Date: February 21, 2023 Subjective Patient seen and examined at bedside. Subjectively doing well. Denies flank discomfort. She is voiding without difficulty. No dysuria or hematuria. No nausea or vomiting. No fever or chills. Review of Systems Constitutional: as per Subjective / HPI Gastrointestinal: as per Subjective / HPI Genitourinary: as per Subjective / HPI Physical Exam Constitutional: + morbidly obese; no acute distress Respiratory: no respiratory distress and no labored breathing Gastrointestinal (Abdomen): Inspection/Auscultation: abdomen normal to inspection; abdomen not distended Musculoskeletal: Head/Neck/Chest: normocephalic Neurologic: moves all extremities and awake Psychiatric: Orientation: alert and oriented x 3 Results & Data Vital Signs (Past 12 Hours) Vital Signs Temp Pulse Resp BP BP Pulse Ox O2 Del Method 02/22/23 11:31 37.5 C 67 16 132/69 122/73 98 02/22/23 11:22 37.5 C 67 16 122/73 98 Room Air 02/22/23 07:40 16 95 Room Air 02/22/23 07:40 Room Air 02/22/23 07:45 36.9 C 68 16 112/75 96 Room Air 02/22/23 05:35 97 Nasal Cannula 02/22/23 01:41 36.9 C 70 16 132/69 95 Nasal Cannula O2 Flow Rate 02/22/23 11:31 02/22/23 11:22 02/22/23 07:40 02/22/23 07:40 02/22/23 07:45 02/22/23 05:35 2 02/22/23 01:41 3 PG Care Time/CCT Total # of Minutes Spent Total Time Spent with Patient: Total time spent is greater than 50% in coordination of care (as documented) at patient's floor/unit and/or counseling patient: Coding Level of Care Code 74798 SUB INP/OBS CARE 25MIN Diagnoses Right distal ureteral calculus N20.1
[2023-02-22] MEDS ORDERED: TAMSULOSIN HCL 0.4 MG CAP PO SCH (21:00)
== END 2023-02-22 12:33 | disposition home or self-care (01) | DRG 660 ==
LOC: ED 13:44 → 3W 18:15 → OR 18:15 → 3W 21:00